=== PATIENT | female | born 1935 | race Caucasian/White ===

== ENCOUNTER 2019-07-03 08:00 | Outpatient (CLI) | payer MEDICARE ==
[2019-07-03 12:05] LABS: BASOPHILS % (AUTO) 0.2 %; EOSINOPHILS # (AUTO) 0.1 10^3/uL (0.0-0.7); EOSINOPHILS % (AUTO) 2.2 %; HGB - HEMOGLOBIN 13.6 g/dL (12.0-16.0); LYMPHOCYTES # (AUTO) 1.7 10^3/uL (1.5-3.5); LYMPHOCYTES % (AUTO) 34.1 %; MEAN CORPUSCULAR HEMOGLOBIN 29.2 pg (27.0-31.0); MEAN CORPUSCULAR HGB CONC 31.6 g/dL (32.0-36.0); MEAN CORPUSCULAR VOLUME 92.3 fL (81.0-99.0); MEAN PLATELET VOLUME 10.8 fL (7.9-10.8); MONOCYTES # (AUTO) 0.4 10^3/uL (0.0-1.0); MONOCYTES % (AUTO) 8.4 %; NEUTROPHILS # (AUTO) 2.7 10^3/uL (1.5-6.6); NEUTROPHILS % (AUTO) 54.9 %; PLT - PLATELET COUNT 140 10^3/uL (130-450); RED BLOOD COUNT 4.66 10^6/uL (4.20-5.40); WHITE BLOOD COUNT 4.9 x10^3/uL (4.8-10.8)
[2019-07-03 12:14] LABS: ALBUMIN 3.8 g/dL (3.2-5.5); ALBUMIN/GLOBULIN RATIO 1.4 (1.0-2.2); ALKALINE PHOSPHATASE 52 IU/L (42-121); ALT ALANINE AMINOTRANSFERASE 11 IU/L (10-60); AST ASPARTATE AMINOTRANSFERASE 19 IU/L (10-42); BILIRUBIN,TOTAL 1.1 mg/dL (0.2-1.0); BUN - BLOOD UREA NITROGEN 26 mg/dL (6-20); CALCIUM 9.3 mg/dL (8.5-10.3); CARBON DIOXIDE - CO2 29 mmol/L (21-32); CHLORIDE 103 mmol/L (101-111); CHOL/HDL RATIO 2.6 (<4.4); CHOLESTEROL 185 mg/dL; GFR - MDRD 53 (>89); GLUCOSE 96 mg/dL (70-100); HDL CHOLESTEROL 70 mg/dL; LDL CHOLESTEROL,CALCULATED 107 mg/dL; LDL/HDL RATIO 1.5 (<4.4); SODIUM 141 mmol/L (135-145); TOTAL PROTEIN 6.5 g/dL (6.7-8.2); VLDL CHOLESTEROL 8 mg/dL
== END 2019-07-03 23:59 | disposition home or self-care (01) ==
LOC: LAB.N 08:00
PROVIDERS: ATTEND Family Medicine
DX: E78.5 Hyperlipidemia, unspecified (principal); I10 Essential (primary) hypertension
CPT/HCPCS: 36415; 80053; 80061; 83721; 84443; 85025

== ENCOUNTER 2019-07-16 15:22 | Outpatient (CLI) | payer MEDICARE ==
--- NOTE | 2019-07-17 08:31 | XRAY Report ---
Reason: FOOT PAIN Procedure Date: 07/16/2019 Accession Number: [id number] / [id number] Procedure: XRN - Foot 3 View LT CPT Code: Final Report FULL RESULT: EXAM: LEFT FOOT RADIOGRAPHY, 3 VIEWS EXAM DATE: 07/16/2019 03:38 PM. CLINICAL HISTORY: 83-year-old female with six-month history of lateral left foot pain. COMPARISON: None. TECHNIQUE: Frontal, lateral and oblique views. FINDINGS: Bones: Mildly to moderately diminished bone density, age-appropriate. No fractures or bone lesions. Joints: Mild narrowing of the tarsometatarsal joints and IP joints, most prominent in the 2nd, 3rd and 4th digits. No subluxations or joint effusion. Soft Tissues: Normal. No soft tissue swelling. IMPRESSION: Moderate diffuse chronic changes, as discussed above, age-related. No fracture, joint effusion, lytic or destructive process. RADIA
== END 2019-07-16 15:23 | disposition home or self-care (01) ==
LOC: DI.N 15:22
PROVIDERS: ATTEND Family Medicine
DX: M19.072 Primary osteoarthritis, left ankle and foot (principal)

== ENCOUNTER 2020-06-07 09:48 | Outpatient (CLI) | payer MEDICARE ==
--- NOTE | 2020-06-08 15:03 | Mammography Report ---
BILATERAL DIGITAL DIAGNOSTIC MAMMOGRAM 3D/2D: 06/07/2020 CLINICAL: Right lumpectomy and radiation therapy 2017. Comparison is made to exams dated: 04/14/2019 mammogram, 04/01/2018 mammogram, and 02/12/2017 mammogr - [facility]. The tissue of both breasts is predominantly fatty. The patient is status post partial mastectomy both breasts. No significant interval change. There ar e stable benign-appearing calcifications in both breasts. No significant masses, calcifications, or other findings are seen in either breast. IMPRESSION: BENIGN There is no mammographic evidence of malignancy. A 1 year screening mammogram is recommended. Findings and recommendations were conveyed to the patient during today's evaluation. This exam was interpreted at Station ID: [id number]. NOTE: For mammograms, a report in lay terms will be sent to the patient. Approximately 15% of breast malignancies will not be visualized mammographically. In the management of a palpable breast mass, a negative mammogram must not discourage biopsy of a clinically suspicious lesion. Electronically Signed By: Duran Kidd M.D. aty/:06/07/2020 11:16:57 ACR BI-RADS Category 2: Benign Finding(s) 3342F PARENCHYMAL PATTERN: (F) - The breast(s) demonstrate(s) diffuse fatty replacement. BI-RADS CATEGORY: (2) - 2 RECOMMENDATION: (ANNUAL) - Recommend routine annual screening mammography. [id number] 1 year screening LATERALITY: (B)
== END 2020-06-07 09:49 | disposition home or self-care (01) ==
LOC: DI 09:48
PROVIDERS: ATTEND Internal Medicine
DX: Z08 Encounter for follow-up examination after completed treatment for malignant neoplasm (principal); Z85.3 Personal history of malignant neoplasm of breast

== ENCOUNTER 2020-07-12 15:06 | Outpatient (CLI) | payer MEDICARE | END 2020-07-12 15:07 | disposition critical access hospital (66) | LOC: EMS 15:06 | PROVIDERS: ATTEND Surgery | DX: S09.90XA Unspecified injury of head, initial encounter (principal); R41.0 Disorientation, unspecified; W18.30XA Fall on same level, unspecified, initial encounter; Y92.199 Unspecified place in other specified residential institution as the place of occurrence of the external cause | CPT/HCPCS: A0425; A0429 ==

== ENCOUNTER 2020-07-12 15:21 | Inpatient (IN) | payer MEDICARE ==
--- NOTE | 2020-07-12 15:32 | ED Physician Documentation ---
PD HPI Fall - Stated complaint Stated Complaint: GLF - History obtained from History obtained from: Patient, EMS - Additional information Additional information: This is a very pleasant 84-year-old woman who presents by ambulance for falls. She has a history of breast cancer and Parkinson's disease per oncology notes with some memory difficulties and frequent falls. She fell yesterday and today. Patient has no complaints but they did note a wound on the back of her head which was from the fall yesterday. Recent start of levofloxacin for reported UTI, I think she is on day 4 or 5. 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 - Present Medications Home Medications: Ambulatory Orders Medication Instructions Recorded Confirmed Anastrozole 1 mg PO DAILY 11/11/19 06/22/20 Aspirin [Adult Aspirin Regimen] 81 mg PO DAILY 11/11/19 06/22/20 Carbidopa/Levodopa 1 tab PO TID 11/11/19 06/22/20 [Carbidopa-Levodopa 25-100 Tab] Cholecalciferol (Vitamin D3) 1 tab PO DAILY 11/11/19 06/22/20 [Vitamin D3] Mirtazapine 0.5 tab PO DAILY PM 11/11/19 06/22/20 Omeprazole 20 mg PO DAILY 11/11/19 06/22/20 Oxybutynin [Ditropan] 5 mg PO DAILY 11/11/19 06/22/20 Simvastatin 10 mg PO DAILY 11/11/19 06/22/20 amLODIPine [Norvasc] 7.5 mg PO DAILY 11/11/19 06/22/20 - Allergies Allergies/Adverse Reactions: Allergies Allergy/AdvReac Type Severity Reaction Status Date / Time No Known Drug Allergies Allergy Verified 07/12/20 15:30 - Social History Smoking Status: Never smoker PD ED PE NORMAL - Vitals Vital signs reviewed: Yes - General General: Other (Slow mumbling speech, she is alert and oriented to person and place but not time or events.) - HEENT HEENT: PERRL, EOMI, Other (There is a scab on the occiput, nontender) - Neck Neck: Supple, no meningeal sign, No bony TTP - Cardiac Cardiac: RRR, No murmur - Respiratory Respiratory: No respiratory distress, Clear bilaterally - Abdomen Abdomen: Soft, Non tender - Back Back: No CVA TTP, No spinal TTP - Derm Derm: Normal color, Warm and dry - Extremities Extremities: No edema, No calf tenderness / cord - Neuro Neuro: personal trainer 2-12 intact, No motor deficit, No sensory deficit Eye Opening: Spontaneous Motor: Obeys Commands Verbal: Confused GCS Score: 14 Results - Vitals Vitals: Vital Signs - 24 hr 07/12/20 07/12/20 07/12/20 15:30 16:53 17:11 Temperature 37.1 C Heart Rate 73 70 72 Respiratory 19 19 18 Rate Blood Pressure 160/72 H 148/99 H 158/73 H O2 Saturation 99 100 93 Oxygen O2 Source Room air - Labs Labs: Laboratory Tests 07/12/20 07/12/20 07/12/20 15:38 15:38 15:38 WBC 7.4 RBC 4.61 Hgb 13.8 Hct 41.2 MCV 89.4 MCH 29.9 MCHC 33.5 RDW 12.8 Plt Count 140 MPV 10.0 Neut # (Auto) 6.1 Lymph # (Auto) 0.8 L [place] # (Auto) 0.4 Eos # (Auto) 0.0 Baso # (Auto) 0.0 Absolute Nucleated RBC 0.00 Nucleated RBC % 0.0 PT 12.2 INR 1.1 Sodium 142 Potassium 3.9 Chloride 105 Carbon Dioxide 26 Anion Gap 11.0 BUN 28 H Creatinine 1.0 Estimated GFR (MDRD) 53 L Glucose 147 H Calcium 9.7 Magnesium 1.9 Total Bilirubin 1.1 H AST 19 ALT 17 Alkaline Phosphatase 97 Total Protein 6.8 Albumin 4.1 Globulin 2.7 Albumin/Globulin Ratio 1.5 - Rads (name of study) CT Head Radiology: EMP read contemporaneously (Acute intracranial hemorrhage with mass- effect, looks like it is within a prior left MCA infarct) CT Cspine Radiology: EMP read contemporaneously (NAD) PD MEDICAL DECISION MAKING - ED course ED course: Spoke with daughter by phone; she did not feel her mental status was too far off normal. She has a cane and "should use a walker, but refuses." CT head as above. Had extensive goals of care discussions with the family and the patient's. Initial plan was to send her to [place] for evaluation. I worked with [facility] and spoke with Dr. Darryl Shaffer, neurosurgeon optimization consultant there who reviewed the images. He felt that given her age and comorbidities there was no interventional approach at that he could offer her. He did not feel like there was any reason for her to come down. This was discussed again with the family and they are in agreement with admission here for expectant management. Departure - Departure Disposition: 66 [facility] DC/Xfer Clinical Impression: Intracranial hemorrhage Condition: Critical
[2020-07-12 15:46] LABS: BASOPHILS % (AUTO) 0.1 %; EOSINOPHILS % (AUTO) 0.1 %; HGB - HEMOGLOBIN 13.8 g/dL (12.0-16.0); LYMPHOCYTES # (AUTO) 0.8 10^3/uL (1.5-3.5); LYMPHOCYTES % (AUTO) 10.2 %; MEAN CORPUSCULAR HEMOGLOBIN 29.9 pg (27.0-31.0); MEAN CORPUSCULAR HGB CONC 33.5 g/dL (32.0-36.0); MEAN CORPUSCULAR VOLUME 89.4 fL (81.0-99.0); MONOCYTES # (AUTO) 0.4 10^3/uL (0.0-1.0); MONOCYTES % (AUTO) 5.7 %; NEUTROPHILS # (AUTO) 6.1 10^3/uL (1.5-6.6); NEUTROPHILS % (AUTO) 83.4 %; PLT - PLATELET COUNT 140 10^3/uL (130-450); RED BLOOD COUNT 4.61 10^6/uL (4.20-5.40); RED CELL DISTRIBUTION WIDTH 12.8 % (12.0-15.0); WHITE BLOOD COUNT 7.4 x10^3/uL (4.8-10.8)
[2020-07-12 15:56] LABS: ALBUMIN 4.1 g/dL (3.2-5.5); ALBUMIN/GLOBULIN RATIO 1.5 (1.0-2.2); BILIRUBIN,TOTAL 1.1 mg/dL (0.2-1.0); CALCIUM 9.7 mg/dL (8.5-10.3); MAGNESIUM 1.9 mg/dL (1.7-2.8); TOTAL PROTEIN 6.8 g/dL (6.7-8.2)
--- NOTE | 2020-07-12 16:33 | CT Report ---
PROCEDURE: HEAD WO INDICATIONS: Head injury TECHNIQUE: Noncontrast 4.5 mm thick angled axial sections acquired from the foramen magnum to the vertex. For r adiation dose reduction, the following was used: automated exposure control, adjustment of mA and/or kV according to patient size. COMPARISON: None. FINDINGS: These images demonstrate what appears to represent left MCA territory cystic encephalomalacia involvi ng the left frontal lobe, left frontal operculum and insular region, and anterior left temporal lobe. There are no craniotomy changes to indicate that the encephalomalacia is secondary to resection. Wit hin the encephalomalacia there is a large, lobular, and partially organized hyperdense extra-axial he matoma measuring approximately 5.8 x 2.4 cm. The hematoma and extra-axial collection combine to produ ce overall moderate mass effect manifest as partial moderate effacement of the left lateral ventricle and partial effacement of the third ventricle. There is left to right midline shift at the level of the foramen of Tran measuring approximately 1 cm and measuring approximately 9 mm at the septum pel lucidum. There is no evidence of ventricular entrapment or acute obstructive hydrocephalus. Temporal horns are symmetric in size. No periventricular edema. The basilar cisterns and fourth ventricle, and aqueduct are all patent. There is global cerebral volume loss with chronic microvascular ischemic ch veronica. No additional intracranial hemorrhage identified. No gross orbital abnormality. Paranasal sinus es and mastoid air cells are clear. IMPRESSION: Acute intracranial hemorrhage which exerts significant overall moderate mass effect on the adjacent b rain parenchyma. Neurosurgical consultation would be recommended. The precise etiology of the hemorrh age is not entirely clear. 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 A n acute on chronic hemorrhage with low attenuation remote blood products could appear similar. Altern atively, combined CSF hygroma and acute subdural hematoma could appear similar as well. Metastasis wi th secondary hemorrhage is considered unlikely but cannot be strictly excluded on the basis of this e xam. An MRI with contrast is recommended to further characterize this abnormality and narrow the diff erential considerations. Findings were discussed with Dr. Bustos at 4:25 PM on 07/12/2020 Reviewed by: Km Kent MD on 07/12/2020 4:32 PM PST Approved by: Km Kent MD on 07/12/2020 4:32 PM [facility] Station ID: [id number]
--- NOTE | 2020-07-12 16:37 | CT Report ---
PROCEDURE: CERVICAL SPINE WO INDICATIONS: Trauma, fall, head injury TECHNIQUE: Noncontrast 3 mm thick sections acquired from the skull base to the T4 level. Sagittal and coronal r eformats were then constructed. For radiation dose reduction, the following was used: automated exp osure control, adjustment of mA and/or kV according to patient size. COMPARISON: None. FINDINGS: Image quality: Excellent. Bones: Upper thoracic cement vertebral body augmentation and posterior fixation changes partially vis ualized. Normal cervical spine alignment and vertebral body height. No evidence of an acute fracture within the field of view. Multilevel multifactorial degenerative changes are present. Soft tissues: Prevertebral soft tissues are normal in thickness. No paravertebral hematomas. No ap ical pneumothoraces. IMPRESSION: No CT evidence of acute or metastatic cervical spine injury. Reviewed by: Km Kent MD on 07/12/2020 4:36 PM PST Approved by: Km Kent MD on 07/12/2020 4:36 PM PST Station ID: [id number]
[2020-07-12 17:07] LABS: INR 1.1 (0.8-1.2); PT - PROTHROMBIN TIME 12.2 secs (9.9-12.6)
[2020-07-12 19:12] LABS: C. PNEUMONIAE- RESP PCR PANEL NOT DETECTED
[2020-07-12] MEDS ORDERED: ONDANSETRON 4 MG/2 ML VIAL IVP PRN (19:55)
[2020-07-12] MEDS ORDERED: MORPHINE 2 MG/ML CARPUJECT IVP PRN (19:55)
[2020-07-12] MEDS ORDERED: oxyCODONE 5 MG TABLET PO PRN (19:55)
[2020-07-12] MEDS ORDERED: DEXTROSE 5%-0.45% NACL 1,000 ML IV SCH (20:00)
--- NOTE | 2020-07-12 20:08 | HISTORY & PHYSICAL EXAMINATION ---
Chief Complaint - Chief Complaint Chief Complaint: Fall History of Present Illness - Admitted From Admitted From:: [facility] - History Obtained From Records Reviewed: Yes History obtained from: Patient, ER Physician, EMR Exam Limitations: Patient has dysarthric speech - History of Present Illness HPI Comment/Other: This is a 84-year-old female with a past medical history significant for hypertension, Parkinson's disease, history of breast cancer who presents today after having a fall at her senior living. She states that she fell yesterday and hit the right side of her head. She fell again today and it was noted that her speech was slurred/dysarthric. The patient denies any headache or change in vision. She denies any focal motor deficits. She reports no chest pain or dyspnea. She states she is not on aspirin or any anticoagulation. She normally ambulates with a cane. She did not have any loss of consciousness. In the emergency department, she was found to be afebrile with a temperature of 37.1 C. Her heart rate was in the 70s. Blood pressure is 160/72. She was not tachypneic and saturating well on room air. She underwent a CT of the head which showed an acute intracranial hemorrhage which exerts significant overall moderate mass-effect. 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 These findings were discussed with neurosurgery at [facility] who felt that transfer was not warranted as there would be no surgical intervention due to her age and comorbidities. Medicine was then consulted for admission. I did discuss goals of care with the patient and she states that she is a DNR. History - Past Medical History Cardiovascular: reports: Hypertension Neuro: reports: Parkinson's FIELD TECH: reports: Breast cancer - Past Surgical History Ortho: reports: Knee replacement, Rotator cuff repair, Spine surgery /FIELD TECH: reports: Other - Family & Social History Family History Comment/Other: She denies any significant family history specifically history of heart disease, stroke, cancer. Living arrangement: care home Social History Notes: She is originally from [facility]. She is a non- smoker. She will have an occasional glass of cognac. Meds/Allgy - Home Medications Home Medications: Ambulatory Orders Medication Instructions Recorded Confirmed Anastrozole 1 mg PO DAILY 11/11/19 06/22/20 Aspirin [Adult Aspirin Regimen] 81 mg PO DAILY 11/11/19 06/22/20 Carbidopa/Levodopa 1 tab PO TID 11/11/19 06/22/20 [Carbidopa-Levodopa 25-100 Tab] Cholecalciferol (Vitamin D3) 1 tab PO DAILY 11/11/19 06/22/20 [Vitamin D3] Mirtazapine 0.5 tab PO DAILY PM 11/11/19 06/22/20 Omeprazole 20 mg PO DAILY 11/11/19 06/22/20 Oxybutynin [Ditropan] 5 mg PO DAILY 11/11/19 06/22/20 Simvastatin 10 mg PO DAILY 11/11/19 06/22/20 amLODIPine [Norvasc] 7.5 mg PO DAILY 11/11/19 06/22/20 - Allergies Allergies/Adverse Reactions: Allergies Allergy/AdvReac Type Severity Reaction Status Date / Time No Known Drug Allergies Allergy Verified 07/12/20 15:30 Review of Systems - Constitutional Constitutional: denies: Fever, Chills - Eyes Eyes: denies: Blurred vision - Cardiovascular Cariovascular: denies: Chest pain, Exertional dyspnea, Decr. exercise tolerance - Respiratory Respiratory: denies: SOB at rest, SOB with exertion - Gastrointestinal Gastrointestinal: denies: Abdominal pain - Neurological Neurological: denies: Focal weakness, Headache - All Other Systems All Other Systems: reports: Other (Review of systems is limited given her dysarthria.) Prior Level of Functionality: She normally ambulates with a cane at baseline. Exam - Vital Signs Reviewed Vital Signs: Yes Vital Signs: Vital Signs x48h Temp Pulse Resp BP Pulse Ox 07/12/20 19:11 69 17 156/64 H 95 07/12/20 17:11 72 18 158/73 H 93 07/12/20 16:53 70 19 148/99 H 100 07/12/20 15:30 37.1 C 73 19 160/72 H 99 - Physical Exam General Appearance: positive: No acute distress, Alert, Mild distress Eyes Bilateral: positive: Normal inspection, PERRL, EOMI, Conjunctivae nml ENT: positive: ENT inspection nml Neck: positive: Nml inspection Respiratory: positive: No respiratory distress. negative: Wheezes, Rales Cardiovascular: positive: Regular rate & rhythm, No murmur. negative: Tachycardia Abdomen: positive: Non-tender, No distention. negative: Tenderness Skin: positive: Warm, Dry Extremities: positive: Full ROM, No pedal edema Neurologic/Psychiatric: positive: Sensation nml, Disoriented to time, Slurred/abnml speech (Her speech is dysarthric.), Other (She has 5 out of 5 motor strength in her upper extremities. Her lower extremities are about 4 out of 5. Dysmetria noted with the LUE. [id number] test intact in the RUE.). negative: Disoriented to person, Disoriented to place, Sensory loss, Facial droop Conclusion/Plan - Problem List (1) Intracranial hemorrhage Conclusion/Plan: This is likely secondary to her fall yesterday. CT confirms an intracranial hemorrhage with mass-effect. Her most prominent symptoms are just dysarthria fortunately. Neurosurgery felt she was not a surgical candidate and so we will admit her here to the intensive care unit. We will start her on a Cardene infusion for goal systolic less than 140 mmHg. Neurochecks every hour. We will repeat a CT head in the morning. Will likely need to discuss with neurology/neurosurgery regarding repeat imaging after tomorrow. She will need PT and OT. N.p.o. until speech evaluation. (2) Hypertension Conclusion/Plan: She is hypertensive with systolic in the 160s. We will place her on a Cardene infusion as mentioned above for goal systolic less than 140. (3) Parkinsons disease Conclusion/Plan: We will resume her home medications when she passes a swallow evaluation. She is n.p.o. for the time being. (4) History of breast cancer Conclusion/Plan: This is an remission per the patient. She is on anastrozole. Continue outpatient follow-up with her oncologist. - Lab Results Lab results reviewed: Yes Abisai Bones: 07/12/20 15:38 07/12/20 15:38 - Diagnostic Imaging Results Diagnostic Imaging Results: positive: Final report reviewed Core Measures - Anticipated LOS I expect patient to be DC'd or transferred within 96 hours.: Yes - Issues Hospital Issues and Management Plan: 84-year-old female presents with fall found to have a hemorrhagic stroke. Per neurosurgery, she is not a surgical candidate and so we will admit her to the ICU. We will start her on Cardene and neurochecks. Repeat CT in the morning. - DVT/VTE - Prophylaxis VTE/DVT Device ordered at admit?: Yes VTE/DVT Prophylaxis med ordered at admit?: No Not Ordered - Medical Reason: Contraindicated
[2020-07-12] MEDS: NICARDIPINE HCL 25 MG in SODIUM CHLORIDE 0.9% 240 ML IV SCH (21:14)
[2020-07-12] MEDS: SODIUM CHLORIDE 0.9% 1,000 ML IV SCH (21:15)
[2020-07-13] MEDS: NICARDIPINE HCL 25 MG in SODIUM CHLORIDE 0.9% 240 ML IV SCH ×6 (01:03→22:05)
[2020-07-13] MEDS: SODIUM CHLORIDE FLUSH 0.9% 10 ML SYRINGE IVP SCH ×3 (01:05→17:07)
[2020-07-13 05:46] LABS: BASOPHILS % (AUTO) 0.2 %; EOSINOPHILS % (AUTO) 0.7 %; LYMPHOCYTES # (AUTO) 1.4 10^3/uL (1.5-3.5); LYMPHOCYTES % (AUTO) 24.8 %; MEAN CORPUSCULAR HEMOGLOBIN 29.4 pg (27.0-31.0); MEAN CORPUSCULAR HGB CONC 32.5 g/dL (32.0-36.0); MEAN CORPUSCULAR VOLUME 90.4 fL (81.0-99.0); MEAN PLATELET VOLUME 10.7 fL (7.9-10.8); MONOCYTES # (AUTO) 0.5 10^3/uL (0.0-1.0); MONOCYTES % (AUTO) 9.3 %; NEUTROPHILS # (AUTO) 3.8 10^3/uL (1.5-6.6); NEUTROPHILS % (AUTO) 64.8 %; PLT - PLATELET COUNT 108 10^3/uL (130-450); RED BLOOD COUNT 4.08 10^6/uL (4.20-5.40); RED CELL DISTRIBUTION WIDTH 12.8 % (12.0-15.0); WHITE BLOOD COUNT 5.8 x10^3/uL (4.8-10.8)
[2020-07-13 05:55] LABS: CALCIUM 8.6 mg/dL (8.5-10.3); CREATININE 0.8 mg/dL (0.4-1.0); PHOSPHORUS 2.8 mg/dL (2.5-4.6)
[2020-07-13] MEDS ORDERED: PANTOPRAZOLE 40 MG VIAL IVP SCH (07:00)
[2020-07-13] MEDS: SODIUM CHLORIDE 0.9% 1,000 ML IV SCH ×3 (07:05→22:22)
[2020-07-13] MEDS ORDERED: FLU VACC QS2020-21(6MOS UP)/PF 60 MCG/0.5 ML SYRINGE IM ONE (09:00)
[2020-07-13] MEDS: SODIUM CHLORIDE FLUSH 0.9% 10 ML SYRINGE IVP PRN (11:20)
[2020-07-13] MEDS: FAMOTIDINE 20 MG/2 ML VIAL IVP SCH ×2 (11:20→21:00)
--- NOTE | 2020-07-13 13:19 | CT Report ---
PROCEDURE: HEAD WO INDICATIONS: worsening confusion TECHNIQUE: Noncontrast 4.5 mm thick angled axial sections acquired from the foramen magnum to the vertex. For r adiation dose reduction, the following was used: automated exposure control, adjustment of mA and/or kV according to patient size. COMPARISON: 07/06. FINDINGS: Image quality: Excellent. CSF spaces: Basal cisterns are patent. No extra-axial fluid collections. Ventricles are normal in size and shape. Brain: Large left frontal-parietal extra-axial cystic lesion with internal acute hemorrhage is not si gnificantly changed compared to 07/12 2020. No new intracranial hemorrhage. The lesion is causing may ed mass effect on adjacent brain parenchyma with approximately 1.1 cm left to right subfalcine hernia tion which is stable compared to 07/12/2020. No obstructive hydrocephalus/ventricular entrapment ident ified in the current study. Amor-white matter interface is normal. Skull and face: Left frontal lindsay hole is stable. The visualized facial bones are intact, without nabil picious lesions. Sinuses: Visualized sinuses and mastoids are clear. IMPRESSION: 1. No significant interval change compared 06/18. 2. Large left frontal-temporal extra-axial cystic lesion with acute internal hemorrhage not significa nt changed compared to 06/18. No new intracranial hemorrhage identified. 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 3. 1.1 cm of stey-cm-owxvn subfalcine herniation stable compared to 07/12/2020. No evidence of ventric ular entrapment. Basilar cisterns remain patent. Reviewed by: Akanksha Pascal MD, PhD on 07/13/2020 12:17 PM [place] Approved by: Akanksha Pascal MD, PhD on 07/13/2020 12:17 PM [place] Station ID: [id number]
--- NOTE | 2020-07-13 13:38 | PROVIDER PROGRESS NOTE ---
Assessment/Plan - Problem List (1) Intracranial hemorrhage Assessment/Plan: The CT head done yesterday in the ER, showed a large area of hemorrhage. The ER doctor reached out to Neurosurgery and she was deemed not to be a candidate for transfer for craniotomy for evacuation of the bleeding because of her underlying dementia and Parkinson's and comorbidities, as per the ER, Dr Stock. Because of her worsening status confusion and language ability and orientation, will obtain a STAT head CT today.>> The head CT showed unchanged findings from yesterday which includes a significant sized hemorrhage and midline shift and some herniation. Avoid anticoagulants and antiplatelet agents. Blood pressure control below 140 systolic is planned. I reached out to the family and spoke to daughter Alisha and discussed the worsened status and that the pt is critical and with brain herniation she may be terminal in the next 24 hours. The family will be allowed to visit, therefore, even during COVID restrictions. (2) Stroke Assessment/Plan: As above. Swallow eval. today>> she cannot swallow and keeping her NPO was advised by Speech Therapist Because of her worsening confusion, will cancel her PT and OT evaluations today, resume them if she has signs of improvement. (3) Aphagia Assessment/Plan: The nurse noted that the patient could not stick out her tongue. Speech therapist saw this patient for swallowing eval and the patient cannot swallow today, starts to speak when she has liquids in her mouth. We will continue to keep her n.p.o. All meds by IV form. She will need PT, OT, and speech therapy rehab at disposition. (4) Brain cyst Assessment/Plan: Repeat head CT done today, makes particular note of presence of cyst in the brain. MRI was recommended on that reading to rule out a possible intracranial tumor as well. If she survives the next 12-24 hours, will order brain MRI. (5) Dementia Assessment/Plan: According to the admitting apprentice, her dementia was mild. Today she is more confused therefore the repeat head CT was done. (6) Parkinsons disease Assessment/Plan: As per Hx. Fortunately, she cannot take her p.o. Parkinson's meds since she cannot swallow safely but does not have an NG tube and or PEG tube for them to be administered that way. (7) Hypertension Assessment/Plan: Blood pressure at presentation was 160. She is on a Cardene drip to keep blood pressure under 140. She is running blood pressures of 118 systolic approximately (8) Thrombocytopenia Assessment/Plan: This is a concerning new finding, for consumption coagulopathy. Follow CBC daily. (9) History of breast cancer Assessment/Plan: She was on home meds, currently on hold. - Current Meds Current Meds: Current Medications Generic Name Dose Route Start Last Admin Trade Name Freq PRN Reason Stop Dose Admin Famotidine 20 mg 07/13/20 10:58 07/13/20 11:20 Famotidine 20 Mg/2 Ml Vial IVP 20 mg BID YOANA Administration Nicardipine HCl 25 mg/ Sodium 250 mls @ 50 mls/hr 07/12/20 20:00 07/13/20 12:49 Chloride IV 5 mg/hr .Q5H YOANA 50 mls/hr Administration Protocol 5 MG/HR Sodium Chloride 1,000 mls @ 100 mls/hr 07/12/20 20:00 07/13/20 12:53 Normal Saline 0.9% IV 100 mls/hr .Q10H YOANA Infusion Sodium Chloride 10 ml 07/13/20 01:00 07/13/20 11:21 Sodium Chloride Flush 0.9% 10 Ml Syringe IVP Not Given 0100,0900,1700 YOANA Sodium Chloride 10 ml 07/12/20 19:55 07/13/20 11:20 Sodium Chloride Flush 0.9% 10 Ml Syringe IVP 10 ml PRN PRN Administration NEEDED PER PROVIDER ORDERS - Lab Result Fish Bone Diagrams: 07/13/20 04:12 07/13/20 04:12 - Additional Planning My Orders: My Active Orders 07/13/20 04:46 Oxygen [Oxygen Therapy] [RC] .PRN 07/13/20 10:58 Famotidine [Pepcid] 20 mg IVP BID Subjective - Subjective Patient Reports: Other (She is just saying gibberish and has right gaze preference. She is unable to follow directions to test strength or [id number] exam.) Nursing Reports: Other (The day nurse notes that she is more confused in the afternoon that she was in the morning) Objective Vital Signs: Vital Signs - 24 hr 07/12/20 07/12/20 07/12/20 15:30 16:53 17:11 Temperature 37.1 C Heart Rate 73 70 72 Heart Rate [ Monitoring electrodes] Respiratory 19 19 18 Rate Blood Pressure 160/72 H 148/99 H 158/73 H Blood Pressure [Right Brachial artery] O2 Saturation 99 100 93 07/12/20 07/12/20 07/12/20 19:11 21:09 21:34 Temperature 37.2 C 37.2 C Heart Rate 69 Heart Rate [ 67 71 Monitoring electrodes] Respiratory 17 14 16 Rate Blood Pressure 156/64 H Blood Pressure 164/69 H 141/63 H [Right Brachial artery] O2 Saturation 95 93 07/12/20 07/12/20 07/13/20 22:00 23:00 00:00 Temperature 36.8 C Heart Rate Heart Rate [ 69 64 63 Monitoring electrodes] Respiratory 16 14 14 Rate Blood Pressure Blood Pressure 133/46 H 120/53 L 126/51 L [Right Brachial artery] O2 Saturation 93 91 L 91 L 07/13/20 07/13/20 07/13/20 01:00 02:00 03:00 Temperature Heart Rate Heart Rate [ 66 62 65 Monitoring electrodes] Respiratory 17 14 16 Rate Blood Pressure Blood Pressure 131/50 H 123/51 L 121/50 L [Right Brachial artery] O2 Saturation 95 95 95 07/13/20 07/13/20 07/13/20 04:00 05:00 06:00 Temperature 36.9 C Heart Rate Heart Rate [ 90 68 66 Monitoring electrodes] Respiratory 13 16 17 Rate Blood Pressure Blood Pressure 118/47 L 129/48 L 122/47 L [Right Brachial artery] O2 Saturation 95 95 92 07/13/20 07/13/20 07/13/20 07:00 08:00 09:00 Temperature 37.2 C Heart Rate Heart Rate [ 69 67 69 Monitoring electrodes] Respiratory 17 17 18 Rate Blood Pressure Blood Pressure 128/51 L 127/48 L 121/50 L [Right Brachial artery] O2 Saturation 94 91 L 96 07/13/20 07/13/20 07/13/20 10:00 11:00 12:00 Temperature Heart Rate Heart Rate [ 72 68 71 Monitoring electrodes] Respiratory 17 20 18 Rate Blood Pressure Blood Pressure 127/48 L 99/60 129/49 L [Right Brachial artery] O2 Saturation 96 97 96 Oxygen O2 Source Nasal cannula I&O (Last 24 Hrs): Intake and Output Totals x24h 07/11/20 07/12/20 07/13/20 23:59 23:59 23:59 Intake Total 2313.333 Output Total 375 633 Balance -375 1680.333 General: Other (Awake, appears fidgity.) HEENT: Mucous membr. moist/pink, Other (R gaze preference) Neuro: Focal Deficits, Other (Gibberish speech this afternoon. Gazing to the right. Not following commands. Moving all extrem spontaneously.) Cardiovascular: Regular rate Respiratory: No respiratory distress Abdomen: Soft Extremities: No edema - Results Results: Laboratory Results WBC 5.8 x10^3/uL (4.8-10.8) 07/13/20 04:12 RBC 4.08 10^6/uL (4.20-5.40) L 07/13/20 04:12 Hgb 12.0 g/dL (12.0-16.0) 07/13/20 04:12 Hct 36.9 % (37.0-47.0) L 07/13/20 04:12 MCV 90.4 fL (81.0-99.0) 07/13/20 04:12 MCH 29.4 pg (27.0-31.0) 07/13/20 04:12 MCHC 32.5 g/dL (32.0-36.0) 07/13/20 04:12 RDW 12.8 % (12.0-15.0) 07/13/20 04:12 Plt Count 108 10^3/uL (130-450) L 07/13/20 04:12 MPV 10.7 fL (7.9-10.8) 07/13/20 04:12 Neut # (Auto) 3.8 10^3/uL (1.5-6.6) 07/13/20 04:12 Lymph # (Auto) 1.4 10^3/uL (1.5-3.5) L 07/13/20 04:12 Haakon # (Auto) 0.5 10^3/uL (0.0-1.0) 07/13/20 04:12 Eos # (Auto) 0.0 10^3/uL (0.0-0.7) 07/13/20 04:12 Baso # (Auto) 0.0 10^3/uL (0.0-0.1) 07/13/20 04:12 Absolute Nucleated RBC 0.00 x10^3/uL 07/13/20 04:12 Nucleated RBC % 0.0 /100WBC 07/13/20 04:12 PT 12.2 secs (9.9-12.6) 07/12/20 15:38 INR 1.1 (0.8-1.2) 07/12/20 15:38 Sodium 140 mmol/L (135-145) 07/13/20 04:12 Potassium 3.6 mmol/L (3.5-5.0) 07/13/20 04:12 Chloride 106 mmol/L (101-111) 07/13/20 04:12 Carbon Dioxide 26 mmol/L (21-32) 07/13/20 04:12 Anion Gap 8.0 (6-13) 07/13/20 04:12 BUN 21 mg/dL (6-20) H 07/13/20 04:12 Creatinine 0.8 mg/dL (0.4-1.0) 07/13/20 04:12 Estimated GFR (MDRD) 69 (>89) L 07/13/20 04:12 Glucose 101 mg/dL (70-100) H 07/13/20 04:12 Calcium 8.6 mg/dL (8.5-10.3) 07/13/20 04:12 Phosphorus 2.8 mg/dL (2.5-4.6) 07/13/20 04:12 Magnesium 2.0 mg/dL (1.7-2.8) 07/13/20 04:12 Total Bilirubin 1.1 mg/dL (0.2-1.0) H 07/12/20 15:38 AST 19 IU/L (10-42) 07/12/20 15:38 ALT 17 IU/L (10-60) 07/12/20 15:38 Alkaline Phosphatase 97 IU/L (42-121) 07/12/20 15:38 Total Protein 6.8 g/dL (6.7-8.2) 07/12/20 15:38 Albumin 4.1 g/dL (3.2-5.5) 07/12/20 15:38 Globulin 2.7 g/dL (2.1-4.2) 07/12/20 15:38 Albumin/Globulin Ratio 1.5 (1.0-2.2) 07/12/20 15:38 Nasal Adenovirus (PCR) NOT DETECTED 07/12/20 18:12 Nasal B. parapertussis DNA (PCR) NOT DETECTED 07/12/20 18:12 Nasal Coronavir 229E PCR NOT DETECTED 07/12/20 18:12 Nasal Coronavir HKU1 PCR NOT DETECTED 07/12/20 18:12 Nasal Coronavir NL63 PCR NOT DETECTED 07/12/20 18:12 Nasal Coronavir OC43 PCR NOT DETECTED 07/12/20 18:12 Nasal Enterovir/Rhinovir PCR NOT DETECTED 07/12/20 18:12 Nasal Influenza B PCR NOT DETECTED 07/12/20 18:12 Nasal Influenza A PCR NOT DETECTED 07/12/20 18:12 Nasal Parainfluen 1 PCR NOT DETECTED 07/12/20 18:12 Nasal Parainfluen 2 PCR NOT DETECTED 07/12/20 18:12 Nasal Parainfluen 3 PCR NOT DETECTED 07/12/20 18:12 Nasal Parainfluen 4 PCR NOT DETECTED 07/12/20 18:12 Nasal RSV (PCR) NOT DETECTED 07/12/20 18:12 Nasal Screen MRSA (PCR) NEGATIVE (NEGATIVE) 07/12/20 21:10 Nasal B.pertussis DNA PCR NOT DETECTED 07/12/20 18:12 Nasal C.pneumoniae (PCR) NOT DETECTED 07/12/20 18:12 Heath Human Metapneumo PCR NOT DETECTED 07/12/20 18:12 Nasal M.pneumoniae (PCR) NOT DETECTED 07/12/20 18:12 Nasal SARS-CoV-2 (PCR) NOT DETECTED 07/12/20 18:12
--- NOTE | 2020-07-13 14:31 | PHARMACY PROGRESS NOTE ---
- Best Possible Medication History Admit Date and Time: 07/12/20 1838 Processed by: Pharmacy Medication History completed: Yes Patient Interview: Pt unable to participate Secondary Source(s): Written medication list (Med rec completed 07/13 by Ra), Pharmacy records, Insurance records Med rec completed by review of facility list and insurance records. As the person ultimately responsible for medication therapy, providers are able to order a medication from an existing home medication list in [facility] via the "Reconcile Routine" prior to Confirmation of that medication by office support clerk. Such practice is discouraged except when the physician, in their clinical judgment, deems that a medical need exists for a medication without regard to previous use.
[2020-07-14] MEDS: SODIUM CHLORIDE FLUSH 0.9% 10 ML SYRINGE IVP SCH ×4 (01:05→20:48)
[2020-07-14] MEDS: NICARDIPINE HCL 25 MG in SODIUM CHLORIDE 0.9% 240 ML IV SCH ×5 (03:13→23:40)
[2020-07-14] MEDS: SODIUM CHLORIDE 0.9% 1,000 ML IV SCH ×2 (04:46→17:45)
[2020-07-14 05:03] LABS: BASOPHILS % (AUTO) 0.1 %; EOSINOPHILS % (AUTO) 0.1 %; HGB - HEMOGLOBIN 12.8 g/dL (12.0-16.0); LYMPHOCYTES % (AUTO) 11.3 %; MEAN CORPUSCULAR HEMOGLOBIN 29.5 pg (27.0-31.0); MEAN CORPUSCULAR HGB CONC 32.9 g/dL (32.0-36.0); MEAN CORPUSCULAR VOLUME 89.6 fL (81.0-99.0); MEAN PLATELET VOLUME 10.4 fL (7.9-10.8); MONOCYTES # (AUTO) 0.6 10^3/uL (0.0-1.0); MONOCYTES % (AUTO) 7.3 %; NEUTROPHILS # (AUTO) 7.1 10^3/uL (1.5-6.6); PLT - PLATELET COUNT 133 10^3/uL (130-450); RED BLOOD COUNT 4.34 10^6/uL (4.20-5.40); RED CELL DISTRIBUTION WIDTH 12.5 % (12.0-15.0); WHITE BLOOD COUNT 8.8 x10^3/uL (4.8-10.8)
[2020-07-14 05:10] LABS: CALCIUM 8.6 mg/dL (8.5-10.3); CREATININE 0.8 mg/dL (0.4-1.0); MAGNESIUM 1.7 mg/dL (1.7-2.8); PHOSPHORUS 3.1 mg/dL (2.5-4.6)
[2020-07-14] MEDS: FAMOTIDINE 20 MG/2 ML VIAL IVP SCH ×2 (08:10→20:48)
--- NOTE | 2020-07-14 18:27 | PROVIDER PROGRESS NOTE ---
Assessment/Plan - Problem List (1) Intracranial hemorrhage Assessment/Plan: Continue in the ICU today. Continue management as per stroke protocol and needs swallowing eval in order to resume oral meds and management. The family was allowed to visit because she was felt to be worsening yesterday and imaging showed herniation of the brain. Plan will be for repeat imaging at 72 hours which is tomorrow (2) Stroke Assessment/Plan: As in #1. Echo will be ordered for completeness. We will not order carotid Dopplers as she is not a candidate for revascularization. PT and OT have been ordered since there has been some improvement in alertness and movement and speech. Swallowing evaluation shows she can have spoonfuls of pured food with nectar thick liquids. (3) Brain cyst Assessment/Plan: As per imaging done at admission. A better delineation will be obtained by brain MRI which is planned for tomorrow (4) Dementia Assessment/Plan: As per Hx (5) Parkinsons disease Assessment/Plan: As per Hx. Parkinson's meds have not been resumed yet since swallowing is not yet deemed to be safe (6) Hypertension Assessment/Plan: Cardene will be weaned down, hopefully her oral pills can be started tomorrow fo r keeping blood pressure between 110 and 140 optimally. (7) Thrombocytopenia Assessment/Plan: Abnormal but stable (8) History of breast cancer Assessment/Plan: As per Hx (9) Aphagia Assessment/Plan: Improved, she can handle secretions and was able to swallow from a spoon. - Current Meds Current Meds: Current Medications Generic Name Dose Route Start Last Admin Trade Name Freq PRN Reason Stop Dose Admin Famotidine 20 mg 07/13/20 10:58 07/14/20 08:10 Famotidine 20 Mg/2 Ml Vial IVP 20 mg BID YOANA Administration Nicardipine HCl 25 mg/ Sodium 250 mls @ 50 mls/hr 07/13/20 18:00 07/14/20 17:46 Chloride IV 5 mg/hr .Q5H YOANA 50 mls/hr Administration Protocol 5 MG/HR Sodium Chloride 1,000 mls @ 75 mls/hr 07/13/20 22:18 07/14/20 17:45 Normal Saline 0.9% IV 75 mls/hr .[id number] YOANA Administration Sodium Chloride 10 ml 07/13/20 01:00 07/14/20 16:58 Sodium Chloride Flush 0.9% 10 Ml Syringe IVP 10 ml 0100,0900,1700 YOANA Administration Sodium Chloride 10 ml 07/12/20 19:55 07/13/20 11:20 Sodium Chloride Flush 0.9% 10 Ml Syringe IVP 10 ml PRN PRN Administration NEEDED PER PROVIDER ORDERS - Lab Result Fish Bone Diagrams: 07/15/20 04:08 07/15/20 04:08 - Additional Planning My Orders: My Active Orders 07/14/20 Evaluate and Treat OT [OT] Routine Evaluate and Treat PT [PT] Routine Subjective - Subjective Patient Reports: Other (She is able to answer questions with 3-4 word sentences, has very garbled speech. She follows directions. She was purposely trying to change the channel on her TV controller, at 5pm.) Nursing Reports: Other Objective Vital Signs: Vital Signs - 24 hr 07/13/20 07/13/20 07/13/20 19:00 20:00 21:00 Temperature Heart Rate [ Activity] Heart Rate [ 77 76 74 Monitoring electrodes] Heart Rate [ Supine] Respiratory 13 20 17 Rate Blood Pressure [Activity] Blood Pressure 134/48 H 124/54 L 126/76 [Right Brachial artery] Blood Pressure [Supine] O2 Saturation 92 90 L 93 07/13/20 07/13/20 07/14/20 22:00 23:00 00:00 Temperature 37.3 C Heart Rate [ Activity] Heart Rate [ 73 72 73 Monitoring electrodes] Heart Rate [ Supine] Respiratory 19 15 19 Rate Blood Pressure [Activity] Blood Pressure 130/51 L 125/52 L 126/55 L [Right Brachial artery] Blood Pressure [Supine] O2 Saturation 94 94 94 07/14/20 07/14/20 07/14/20 01:00 02:00 03:00 Temperature Heart Rate [ Activity] Heart Rate [ 71 75 71 Monitoring electrodes] Heart Rate [ Supine] Respiratory 17 17 16 Rate Blood Pressure [Activity] Blood Pressure 128/53 L 139/49 H 125/55 L [Right Brachial artery] Blood Pressure [Supine] O2 Saturation 92 93 95 07/14/20 07/14/20 07/14/20 04:00 05:00 06:00 Temperature 37.6 C Heart Rate [ Activity] Heart Rate [ 70 68 67 Monitoring electrodes] Heart Rate [ Supine] Respiratory 14 15 14 Rate Blood Pressure [Activity] Blood Pressure 134/50 H 124/47 L 123/51 L [Right Brachial artery] Blood Pressure [Supine] O2 Saturation 97 96 95 07/14/20 07/14/20 07/14/20 07:00 08:00 09:00 Temperature 37.4 C 37.4 C Heart Rate [ Activity] Heart Rate [ 66 68 73 Monitoring electrodes] Heart Rate [ Supine] Respiratory 16 16 15 Rate Blood Pressure [Activity] Blood Pressure 124/46 L 121/48 L 119/51 L [Right Brachial artery] Blood Pressure [Supine] O2 Saturation 95 95 96 07/14/20 07/14/20 07/14/20 10:11 11:37 12:00 Temperature 37.1 C 37.1 C Heart Rate [ Activity] Heart Rate [ 70 72 66 Monitoring electrodes] Heart Rate [ Supine] Respiratory 16 16 16 Rate Blood Pressure [Activity] Blood Pressure 110/49 L 110/60 118/48 L [Right Brachial artery] Blood Pressure [Supine] O2 Saturation 95 95 96 07/14/20 07/14/20 07/14/20 13:03 14:01 14:21 Temperature 37.6 C Heart Rate [ Activity] Heart Rate [ 72 66 Monitoring electrodes] Heart Rate [ Supine] Respiratory 15 16 Rate Blood Pressure [Activity] Blood Pressure 115/51 L 113/45 L [Right Brachial artery] Blood Pressure [Supine] O2 Saturation 97 93 95 07/14/20 07/14/20 07/14/20 15:10 15:39 16:00 Temperature 37.1 C Heart Rate [ 73 Activity] Heart Rate [ 66 64 Monitoring electrodes] Heart Rate [ 65 Supine] Respiratory 15 16 Rate Blood Pressure 128/52 L [Activity] Blood Pressure 128/52 L 112/47 L [Right Brachial artery] Blood Pressure 114/45 L [Supine] O2 Saturation 96 96 07/14/20 07/14/20 18:00 18:25 Temperature 36.7 C Heart Rate [ Activity] Heart Rate [ 71 65 Monitoring electrodes] Heart Rate [ Supine] Respiratory 16 15 Rate Blood Pressure [Activity] Blood Pressure 124/51 L 123/44 L [Right Brachial artery] Blood Pressure [Supine] O2 Saturation 95 96 Oxygen O2 Source Nasal cannula I&O (Last 24 Hrs): Intake and Output Totals x24h 07/12/20 07/13/20 07/14/20 23:59 23:59 23:59 Intake Total 3715.833 2428.750 Output Total 355 2001 865 Balance -375 2147.833 1563.750 General: Alert HEENT: Mucous membr. moist/pink, Other (Facial droop of the right) Neck: Supple, No JVD Neuro: Alert, Other (Facial droop of the right, the right arm has some spont aneous movement but is weak, the left is stronger, her speech is garbled, she does follow directions, follows voice commands and is able to answer in short sentences this evening.) Cardiovascular: Regular rate, No murmurs Respiratory: No respiratory distress Abdomen: Soft Extremities: No edema - Results Results: Laboratory Results WBC 8.8 x10^3/uL (4.8-10.8) 07/14/20 04:20 RBC 4.34 10^6/uL (4.20-5.40) 07/14/20 04:20 Hgb 12.8 g/dL (12.0-16.0) 07/14/20 04:20 Hct 38.9 % (37.0-47.0) 07/14/20 04:20 MCV 89.6 fL (81.0-99.0) 07/14/20 04:20 MCH 29.5 pg (27.0-31.0) 07/14/20 04:20 MCHC 32.9 g/dL (32.0-36.0) 07/14/20 04:20 RDW 12.5 % (12.0-15.0) 07/14/20 04:20 Plt Count 133 10^3/uL (130-450) 07/14/20 04:20 MPV 10.4 fL (7.9-10.8) 07/14/20 04:20 Neut # (Auto) 7.1 10^3/uL (1.5-6.6) H 07/14/20 04:20 Lymph # (Auto) 1.0 10^3/uL (1.5-3.5) L 07/14/20 04:20 Hughes # (Auto) 0.6 10^3/uL (0.0-1.0) 07/14/20 04:20 Eos # (Auto) 0.0 10^3/uL (0.0-0.7) 07/14/20 04:20 Baso # (Auto) 0.0 10^3/uL (0.0-0.1) 07/14/20 04:20 Absolute Nucleated RBC 0.00 x10^3/uL 07/14/20 04:20 Nucleated RBC % 0.0 /100WBC 07/14/20 04:20 PT 12.2 secs (9.9-12.6) 07/12/20 15:38 INR 1.1 (0.8-1.2) 07/12/20 15:38 Sodium 140 mmol/L (135-145) 07/14/20 04:20 Potassium 3.7 mmol/L (3.5-5.0) 07/14/20 04:20 Chloride 110 mmol/L (101-111) 07/14/20 04:20 Carbon Dioxide 21 mmol/L (21-32) 07/14/20 04:20 Anion Gap 9.0 (6-13) 07/14/20 04:20 BUN 18 mg/dL (6-20) 07/14/20 04:20 Creatinine 0.8 mg/dL (0.4-1.0) 07/14/20 04:20 Estimated GFR (MDRD) 69 (>89) L 07/14/20 04:20 Glucose 113 mg/dL (70-100) H 07/14/20 04:20 Calcium 8.6 mg/dL (8.5-10.3) 07/14/20 04:20 Phosphorus 3.1 mg/dL (2.5-4.6) 07/14/20 04:20 Magnesium 1.7 mg/dL (1.7-2.8) 07/14/20 04:20 Total Bilirubin 1.1 mg/dL (0.2-1.0) H 07/12/20 15:38 AST 19 IU/L (10-42) 07/12/20 15:38 ALT 17 IU/L (10-60) 07/12/20 15:38 Alkaline Phosphatase 97 IU/L (42-121) 07/12/20 15:38 Total Protein 6.8 g/dL (6.7-8.2) 07/12/20 15:38 Albumin 4.1 g/dL (3.2-5.5) 07/12/20 15:38 Globulin 2.7 g/dL (2.1-4.2) 07/12/20 15:38 Albumin/Globulin Ratio 1.5 (1.0-2.2) 07/12/20 15:38 Nasal Adenovirus (PCR) NOT DETECTED 07/12/20 18:12 Nasal B. parapertussis DNA (PCR) NOT DETECTED 07/12/20 18:12 Nasal Coronavir 229E PCR NOT DETECTED 07/12/20 18:12 Nasal Coronavir HKU1 PCR NOT DETECTED 07/12/20 18:12 Nasal Coronavir NL63 PCR NOT DETECTED 07/12/20 18:12 Nasal Coronavir OC43 PCR NOT DETECTED 07/12/20 18:12 Nasal Enterovir/Rhinovir PCR NOT DETECTED 07/12/20 18:12 Nasal Influenza B PCR NOT DETECTED 07/12/20 18:12 Nasal Influenza A PCR NOT DETECTED 07/12/20 18:12 Nasal Parainfluen 1 PCR NOT DETECTED 07/12/20 18:12 Nasal Parainfluen 2 PCR NOT DETECTED 07/12/20 18:12 Nasal Parainfluen 3 PCR NOT DETECTED 07/12/20 18:12 Nasal Parainfluen 4 PCR NOT DETECTED 07/12/20 18:12 Nasal RSV (PCR) NOT DETECTED 07/12/20 18:12 Nasal Screen MRSA (PCR) NEGATIVE (NEGATIVE) 07/12/20 21:10 Nasal B.pertussis DNA PCR NOT DETECTED 07/12/20 18:12 Nasal C.pneumoniae (PCR) NOT DETECTED 07/12/20 18:12 Heath Human Metapneumo PCR NOT DETECTED 07/12/20 18:12 Nasal M.pneumoniae (PCR) NOT DETECTED 07/12/20 18:12 Nasal SARS-CoV-2 (PCR) NOT DETECTED 07/12/20 18:12
[2020-07-15 04:40] LABS: BASOPHILS % (AUTO) 0.3 %; EOSINOPHILS # (AUTO) 0.1 10^3/uL (0.0-0.7); EOSINOPHILS % (AUTO) 1.4 %; HGB - HEMOGLOBIN 12.4 g/dL (12.0-16.0); LYMPHOCYTES # (AUTO) 1.3 10^3/uL (1.5-3.5); LYMPHOCYTES % (AUTO) 18.1 %; MEAN CORPUSCULAR HEMOGLOBIN 29.1 pg (27.0-31.0); MEAN CORPUSCULAR HGB CONC 32.5 g/dL (32.0-36.0); MEAN CORPUSCULAR VOLUME 89.4 fL (81.0-99.0); MEAN PLATELET VOLUME 10.2 fL (7.9-10.8); MONOCYTES # (AUTO) 0.6 10^3/uL (0.0-1.0); NEUTROPHILS % (AUTO) 71.9 %; PLT - PLATELET COUNT 131 10^3/uL (130-450); RED BLOOD COUNT 4.26 10^6/uL (4.20-5.40); RED CELL DISTRIBUTION WIDTH 12.5 % (12.0-15.0)
[2020-07-15 04:41] LABS: VBG PH 7.391 (7.31-7.41)
[2020-07-15 04:53] LABS: CALCIUM 8.5 mg/dL (8.5-10.3); CREATININE 0.8 mg/dL (0.4-1.0); MAGNESIUM 1.8 mg/dL (1.7-2.8); PHOSPHORUS 2.7 mg/dL (2.5-4.6)
[2020-07-15] MEDS: NICARDIPINE HCL 25 MG in SODIUM CHLORIDE 0.9% 240 ML IV SCH (05:55)
[2020-07-15] MEDS: SODIUM CHLORIDE 0.9% 1,000 ML IV SCH ×3 (06:55→21:45)
[2020-07-15] MEDS: FAMOTIDINE 20 MG/2 ML VIAL IVP SCH ×2 (09:20→20:15)
[2020-07-15] MEDS: OXYBUTYNIN 5MG TABLET PO SCH ×2 (09:25→20:15)
[2020-07-15] MEDS ORDERED: POTASSIUM CHLORIDE 20 MEQ TABLET PO ONE (09:30)
[2020-07-15] MEDS ORDERED: POTASSIUM CHLORIDE 20 MEQ/15 ML UDC PO ONE (09:30)
[2020-07-15] MEDS: SODIUM CHLORIDE FLUSH 0.9% 10 ML SYRINGE IVP PRN (09:37)
[2020-07-15] MEDS: SODIUM CHLORIDE FLUSH 0.9% 10 ML SYRINGE IVP SCH ×3 (09:39→20:18)
[2020-07-15] MEDS: ACETAMINOPHEN 325 MG TABLET PO PRN (10:06)
[2020-07-15] MEDS: amLODIPine 5 MG TABLET PO SCH (14:22)
[2020-07-15] MEDS: CARBIDOPA/LEVODOPA 25 MG/100 MG TABLET PO SCH ×2 (14:22→21:31)
--- NOTE | 2020-07-15 15:32 | PROVIDER PROGRESS NOTE ---
Assessment/Plan - Problem List (1) Intracranial hemorrhage Assessment/Plan: Plan is for the brain MRI to be done today (72 hours after presentation). Continue to hold anticoagulants and antiplatelet agents. Management as for stroke (2) Stroke Assessment/Plan: She has had noticeable improvement over the last 36 hours. She can be moved out of the ICU to a telemetry med/surge bed today. Murdock to be removed. Eval by the speech therapist shows that she can be on a pured diet still with nectar thick liquids and she needs to be prompted into chin down, swallow now. PT and OT to begin today. I spoke to the daughter, who was at bedside, and described the plan for PT, OT and Speech rehab at SNF post stroke. After that, I told her, her new baseline may still have some neuro deficits and she may not be able to go back to assisted living. (3) Brain cyst Assessment/Plan: As per imaging done admission. This will be reimaged today by MRI (4) Dementia Assessment/Plan: As per Hx (5) Parkinsons disease Assessment/Plan: Will restart the home Parkinson's meds since her swallowing has slightly improved overall. (6) Hypertension Assessment/Plan: Will restart her Norvasc, at a lower dose, in order to wean IV Cardene to off. Resume other home blood pressure meds as necessary to treat hypertension (7) Thrombocytopenia Assessment/Plan: Monitor labs (8) History of breast cancer Assessment/Plan: as per Hx (9) Aphagia Assessment/Plan: Improved - Current Meds Current Meds: Current Medications Generic Name Dose Route Start Last Admin Trade Name Jacquelyn PRN Reason Stop Dose Admin Acetaminophen 650 mg 07/12/20 19:55 07/15/20 10:06 Acetaminophen 325 Mg Tablet PO 650 mg Q4HR PRN Administration Pain 1 to 4 Amlodipine Besylate 2.5 mg 07/15/20 12:00 07/15/20 14:22 Amlodipine 5 Mg Tablet PO 2.5 mg DAILY YOANA Administration Carbidopa/Levodopa 1 tab 07/15/20 14:00 07/15/20 14:22 Carbidopa/Levodopa 25 Mg/100 Mg Tablet PO 1 tab TID YOANA Administration Famotidine 20 mg 07/13/20 10:58 07/15/20 09:20 Famotidine 20 Mg/2 Ml Vial IVP 20 mg BID YOANA Administration Sodium Chloride 1,000 mls @ 75 mls/hr 07/13/20 22:18 07/15/20 15:08 Normal Saline 0.9% IV 75 mls/hr .[id number] YOANA Infusion Oxybutynin Chloride 5 mg 07/15/20 09:00 07/15/20 09:25 Oxybutynin 5mg Tablet PO 5 mg BID YOANA Administration Sodium Chloride 10 ml 07/13/20 01:00 07/15/20 09:39 Sodium Chloride Flush 0.9% 10 Ml Syringe IVP Not Given 0100,0900,1700 YOANA Sodium Chloride 10 ml 07/12/20 19:55 07/15/20 09:37 Sodium Chloride Flush 0.9% 10 Ml Syringe IVP 10 ml PRN PRN Administration NEEDED PER PROVIDER ORDERS - Lab Result Fish Bone Diagrams: 07/15/20 04:08 07/15/20 04:08 - Additional Planning My Orders: My Active Orders 07/15/20 Breakfast DIET [Full Liquid Diet] [DIET] 07/15/20 07:59 Miscellaenous Nursing Order [RC] ONCE 07/15/20 08:00 Miscellaenous Nursing Order [RC] QSHIFT 07/15/20 09:00 Oxybutynin [Ditropan] 5 mg PO BID 07/15/20 10:56 Echo Complete w/Bubble Study [ECHO] Routine 07/15/20 12:00 amLODIPine [Norvasc] 2.5 mg PO DAILY 07/15/20 13:07 Head [BRAIN WO] [MRI] Routine 07/15/20 14:00 Carbidopa/Levodopa 25/100 [Sinemet 25 mg/100 mg] 1 tab PO TID 07/15/20 21:00 Atorvastatin [Lipitor] 5 mg PO QPM 07/16/20 05:00 CALCIUM, IONIZED ([facility]) [BG] DAILYLAB 07/17/20 05:00 CALCIUM, IONIZED ([facility]) [BG] DAILYLAB Subjective - Subjective Patient Reports: Resting Comfortably Nursing Reports: Other (The day her speech is garbled but she can answer in longer sentences and is even "telling jokes" to [employer]PERATOR) Objective Vital Signs: Vital Signs - 24 hr 07/14/20 07/14/20 07/14/20 15:39 16:00 18:00 Temperature 37.1 C 36.7 C Heart Rate [ Activity] Heart Rate [ 66 64 71 Monitoring electrodes] Heart Rate [ Supine] Respiratory 15 16 16 Rate Blood Pressure [Activity] Blood Pressure 128/52 L 112/47 L 124/51 L [Right Brachial artery] Blood Pressure [Supine] O2 Saturation 96 96 95 07/14/20 07/14/20 07/14/20 18:25 19:00 19:41 Temperature 36.9 C Heart Rate [ Activity] Heart Rate [ 65 69 69 Monitoring electrodes] Heart Rate [ Supine] Respiratory 15 17 17 Rate Blood Pressure [Activity] Blood Pressure 123/44 L 116/47 L 116/47 L [Right Brachial artery] Blood Pressure [Supine] O2 Saturation 96 95 95 07/14/20 07/14/20 07/14/20 20:00 21:00 22:00 Temperature Heart Rate [ Activity] Heart Rate [ 66 68 64 Monitoring electrodes] Heart Rate [ Supine] Respiratory 14 22 16 Rate Blood Pressure [Activity] Blood Pressure 120/45 L 114/43 L 118/73 [Right Brachial artery] Blood Pressure [Supine] O2 Saturation 94 95 93 07/14/20 07/14/20 07/14/20 22:08 22:15 22:20 Temperature Heart Rate [ Activity] Heart Rate [ 64 67 69 Monitoring electrodes] Heart Rate [ Supine] Respiratory Rate Blood Pressure [Activity] Blood Pressure 119/46 L 110/49 L 124/44 L [Right Brachial artery] Blood Pressure [Supine] O2 Saturation 07/14/20 07/14/20 07/14/20 22:25 22:30 22:45 Temperature Heart Rate [ Activity] Heart Rate [ 68 67 64 Monitoring electrodes] Heart Rate [ Supine] Respiratory Rate Blood Pressure [Activity] Blood Pressure 127/49 L 123/48 L 119/49 L [Right Brachial artery] Blood Pressure [Supine] O2 Saturation 07/14/20 07/14/20 07/15/20 23:00 23:51 00:00 Temperature 37.4 C 37.4 C Heart Rate [ Activity] Heart Rate [ 65 68 65 Monitoring electrodes] Heart Rate [ Supine] Respiratory 16 16 15 Rate Blood Pressure [Activity] Blood Pressure 126/53 L 128/50 L [Right Brachial artery] Blood Pressure [Supine] O2 Saturation 93 95 94 07/15/20 07/15/20 07/15/20 01:00 02:00 03:00 Temperature Heart Rate [ Activity] Heart Rate [ 70 62 65 Monitoring electrodes] Heart Rate [ Supine] Respiratory 16 17 16 Rate Blood Pressure [Activity] Blood Pressure 129/51 L 125/49 L 127/49 L [Right Brachial artery] Blood Pressure [Supine] O2 Saturation 94 93 92 07/15/20 07/15/20 07/15/20 04:00 05:00 06:00 Temperature 37.1 C Heart Rate [ Activity] Heart Rate [ 71 71 67 Monitoring electrodes] Heart Rate [ Supine] Respiratory 16 17 14 Rate Blood Pressure [Activity] Blood Pressure 129/52 L 134/51 H 134/46 H [Right Brachial artery] Blood Pressure [Supine] O2 Saturation 94 94 94 07/15/20 07/15/20 07/15/20 07:00 08:00 09:00 Temperature 37.2 C Heart Rate [ Activity] Heart Rate [ 70 72 77 Monitoring electrodes] Heart Rate [ Supine] Respiratory 17 17 19 Rate Blood Pressure [Activity] Blood Pressure 129/49 L 137/56 H 125/48 L [Right Brachial artery] Blood Pressure [Supine] O2 Saturation 94 92 97 07/15/20 07/15/20 07/15/20 10:00 11:00 12:00 Temperature 36.8 C Heart Rate [ Activity] Heart Rate [ 72 70 71 Monitoring electrodes] Heart Rate [ Supine] Respiratory 19 19 18 Rate Blood Pressure [Activity] Blood Pressure 133/51 H 126/52 L 138/56 H [Right Brachial artery] Blood Pressure [Supine] O2 Saturation 94 95 94 07/15/20 07/15/20 07/15/20 12:20 13:00 14:00 Temperature Heart Rate [ 73 Activity] Heart Rate [ 67 72 Monitoring electrodes] Heart Rate [ 65 Supine] Respiratory 18 18 Rate Blood Pressure 128/52 L [Activity] Blood Pressure 138/56 H 149/74 H [Right Brachial artery] Blood Pressure 114/45 L [Supine] O2 Saturation 95 07/15/20 15:00 Temperature Heart Rate [ Activity] Heart Rate [ 75 Monitoring electrodes] Heart Rate [ Supine] Respiratory 22 Rate Blood Pressure [Activity] Blood Pressure 126/56 L [Right Brachial artery] Blood Pressure [Supine] O2 Saturation Oxygen O2 Source Room air I&O (Last 24 Hrs): Intake and Output Totals x24h 07/13/20 07/14/20 07/15/20 23:59 23:59 23:59 Intake Total 3715.833 3072.500 1687.500 Output Total 1568 1080 1075 Balance 2147.833 1992.500 612.500 General: Alert, Other (Possibly oriented x2 (self and location)) HEENT: Mucous membr. moist/pink, Other (Facial droop) Neuro: Alert, Other (Right arm is weaker than left, speech is still garbled but more comprehensible) Cardiovascular: Regular rate Respiratory: No respiratory distress Abdomen: Soft Extremities: No edema - Results Results: Laboratory Results WBC 7.0 x10^3/uL (4.8-10.8) 07/15/20 04:08 RBC 4.26 10^6/uL (4.20-5.40) 07/15/20 04:08 Hgb 12.4 g/dL (12.0-16.0) 07/15/20 04:08 Hct 38.1 % (37.0-47.0) 07/15/20 04:08 MCV 89.4 fL (81.0-99.0) 07/15/20 04:08 MCH 29.1 pg (27.0-31.0) 07/15/20 04:08 MCHC 32.5 g/dL (32.0-36.0) 07/15/20 04:08 RDW 12.5 % (12.0-15.0) 07/15/20 04:08 Plt Count 131 10^3/uL (130-450) 07/15/20 04:08 MPV 10.2 fL (7.9-10.8) 07/15/20 04:08 Neut # (Auto) 5.0 10^3/uL (1.5-6.6) 07/15/20 04:08 Lymph # (Auto) 1.3 10^3/uL (1.5-3.5) L 07/15/20 04:08 Mobile # (Auto) 0.6 10^3/uL (0.0-1.0) 07/15/20 04:08 Eos # (Auto) 0.1 10^3/uL (0.0-0.7) 07/15/20 04:08 Baso # (Auto) 0.0 10^3/uL (0.0-0.1) 07/15/20 04:08 Absolute Nucleated RBC 0.00 x10^3/uL 07/15/20 04:08 Nucleated RBC % 0.0 /100WBC 07/15/20 04:08 PT 12.2 secs (9.9-12.6) 07/12/20 15:38 INR 1.1 (0.8-1.2) 07/12/20 15:38 VBG pH 7.391 (7.31-7.41) 07/15/20 04:08 Ionized Calcium 1.14 mmol/L (1.15-1.33) L 07/15/20 04:08 Sodium 141 mmol/L (135-145) 07/15/20 04:08 Potassium 3.5 mmol/L (3.5-5.0) 07/15/20 04:08 Chloride 109 mmol/L (101-111) 07/15/20 04:08 Carbon Dioxide 21 mmol/L (21-32) 07/15/20 04:08 Anion Gap 11.0 (6-13) 07/15/20 04:08 BUN 20 mg/dL (6-20) 07/15/20 04:08 Creatinine 0.8 mg/dL (0.4-1.0) 07/15/20 04:08 Estimated GFR (MDRD) 69 (>89) L 07/15/20 04:08 Glucose 101 mg/dL (70-100) H 07/15/20 04:08 Calcium 8.5 mg/dL (8.5-10.3) 07/15/20 04:08 Phosphorus 2.7 mg/dL (2.5-4.6) 07/15/20 04:08 Magnesium 1.8 mg/dL (1.7-2.8) 07/15/20 04:08 Total Bilirubin 1.1 mg/dL (0.2-1.0) H 07/12/20 15:38 AST 19 IU/L (10-42) 07/12/20 15:38 ALT 17 IU/L (10-60) 07/12/20 15:38 Alkaline Phosphatase 97 IU/L (42-121) 07/12/20 15:38 Total Protein 6.8 g/dL (6.7-8.2) 07/12/20 15:38 Albumin 4.1 g/dL (3.2-5.5) 07/12/20 15:38 Globulin 2.7 g/dL (2.1-4.2) 07/12/20 15:38 Albumin/Globulin Ratio 1.5 (1.0-2.2) 07/12/20 15:38 Nasal Adenovirus (PCR) NOT DETECTED 07/12/20 18:12 Nasal B. parapertussis DNA (PCR) NOT DETECTED 07/12/20 18:12 Nasal Coronavir 229E PCR NOT DETECTED 07/12/20 18:12 Nasal Coronavir HKU1 PCR NOT DETECTED 07/12/20 18:12 Nasal Coronavir NL63 PCR NOT DETECTED 07/12/20 18:12 Nasal Coronavir OC43 PCR NOT DETECTED 07/12/20 18:12 Nasal Enterovir/Rhinovir PCR NOT DETECTED 07/12/20 18:12 Nasal Influenza B PCR NOT DETECTED 07/12/20 18:12 Nasal Influenza A PCR NOT DETECTED 07/12/20 18:12 Nasal Parainfluen 1 PCR NOT DETECTED 07/12/20 18:12 Nasal Parainfluen 2 PCR NOT DETECTED 07/12/20 18:12 Nasal Parainfluen 3 PCR NOT DETECTED 07/12/20 18:12 Nasal Parainfluen 4 PCR NOT DETECTED 07/12/20 18:12 Nasal RSV (PCR) NOT DETECTED 07/12/20 18:12 Nasal Screen MRSA (PCR) NEGATIVE (NEGATIVE) 07/12/20 21:10 Nasal B.pertussis DNA PCR NOT DETECTED 07/12/20 18:12 Nasal C.pneumoniae (PCR) NOT DETECTED 07/12/20 18:12 Heath Human Metapneumo PCR NOT DETECTED 07/12/20 18:12 Nasal M.pneumoniae (PCR) NOT DETECTED 07/12/20 18:12 Nasal SARS-CoV-2 (PCR) NOT DETECTED 07/12/20 18:12
[2020-07-15] MEDS ORDERED: GADOBUTROL 7.5 MMOL/7.5 ML VIAL ONE (18:53)
[2020-07-15] MEDS ORDERED: GADOBUTROL 7.5 MMOL/7.5 ML VIAL IVP ONE (19:19)
--- NOTE | 2020-07-15 20:13 | MRI Report ---
PROCEDURE: Brain W/WO INDICATIONS: F/U CT CONTRAST: IV CONTRAST: Gadavist ml: 6 TECHNIQUE: Noncontrast axial T1 spin echo, axial T2 fast spin echo, sagittal and axial FLAIR, coronal T2 fast sp in echo, axial gradient echo, axial diffusion and ADC through the brain. After the administration of contrast, axial and coronal T1 spin echo with fat saturation through the brain. COMPARISON: Head CT dated 07/13/2020 FINDINGS: Image quality: Degraded by motion artifact. CSF spaces: Basal cisterns are patent. No extra-axial fluid collections. Ventricles are normal in size and shape. Brain: There is a predominantly cystic and partially solid mass within the left anterior frontal lobe , as before, measuring roughly 72 mm anteroposterior by 47 mm transverse by 65 mm craniocaudal, as be fore. There is layering high T1/low T2 signal intensity material within it, corresponding to a small amount of hemorrhage, as seen by CT. No definite mural enhancement is seen within this lesion. Left frontal sulcal effacement is present. Roughly 10 mm of rightward midline shift is present, as before. There is cerebral volume loss for age. There is periventricular white matter chronic small vessel i schemic change. The brainstem appears normal. Diffusion-weighted images demonstrate no acute ischem ic insults. No chronic ischemic insults. Normal intravascular flow voids are present. Skull and face: Calvarial marrow is normal in signal. Orbits appear normal. Sinuses: Sinuses and mastoids appear clear. IMPRESSION: 1. No significant change in left frontal cystic mass with layering internal hemorrhagic products. No evidence of surrounding inflammation, nor venous echogenic edema. Neurosurgical consultation recommen ded. 2. No significant change in rightward midline shift. 3. No recent infarct. Reviewed by: Damon Wheeler MD on 07/15/2020 8:12 PM PST Approved by: Damon Wheeler MD on 07/15/2020 8:12 PM PST Station ID: [id number]
[2020-07-15] MEDS: ATORVASTATIN 10 MG TABLET PO SCH (20:15)
[2020-07-16] MEDS: ACETAMINOPHEN 325 MG TABLET PO PRN (04:59)
[2020-07-16] MEDS: SODIUM CHLORIDE 0.9% 1,000 ML IV SCH (05:14)
[2020-07-16 05:25] LABS: BASOPHILS % (AUTO) 0.2 %; EOSINOPHILS # (AUTO) 0.1 10^3/uL (0.0-0.7); EOSINOPHILS % (AUTO) 2.2 %; HGB - HEMOGLOBIN 12.7 g/dL (12.0-16.0); LYMPHOCYTES # (AUTO) 1.3 10^3/uL (1.5-3.5); LYMPHOCYTES % (AUTO) 19.7 %; MEAN CORPUSCULAR HEMOGLOBIN 29.5 pg (27.0-31.0); MEAN CORPUSCULAR HGB CONC 33.3 g/dL (32.0-36.0); MEAN CORPUSCULAR VOLUME 88.4 fL (81.0-99.0); MEAN PLATELET VOLUME 10.7 fL (7.9-10.8); MONOCYTES # (AUTO) 0.7 10^3/uL (0.0-1.0); MONOCYTES % (AUTO) 10.4 %; NEUTROPHILS # (AUTO) 4.3 10^3/uL (1.5-6.6); NEUTROPHILS % (AUTO) 67.2 %; PLT - PLATELET COUNT 136 10^3/uL (130-450); RED BLOOD COUNT 4.31 10^6/uL (4.20-5.40); RED CELL DISTRIBUTION WIDTH 12.4 % (12.0-15.0); WHITE BLOOD COUNT 6.3 x10^3/uL (4.8-10.8)
[2020-07-16 05:41] LABS: CALCIUM 8.8 mg/dL (8.5-10.3); CREATININE 0.6 mg/dL (0.4-1.0); MAGNESIUM 1.7 mg/dL (1.7-2.8); PHOSPHORUS 2.1 mg/dL (2.5-4.6)
[2020-07-16 05:55] LABS: VBG PH 7.42 (7.31-7.41)
[2020-07-16] MEDS: CARBIDOPA/LEVODOPA 25 MG/100 MG TABLET PO SCH ×3 (06:16→21:22)
--- NOTE | 2020-07-16 06:38 | PROVIDER PROGRESS NOTE ---
Assessment/Plan - Problem List (1) Intracranial hemorrhage Assessment/Plan: Patient appears stable/improving She was seated in bedside chair at time of exam. Her speech is intelligible.Her thought processing is intact. However she Has some word finding difficulties. MRI done yesterday showed no significant change in the left frontal cystic mass. Layering internal hemorrhagic products were noted. There was no evidence of surrounding inflammation or venous echogenic edema. No significant change in ri ghtward midline shift. No recent infarct noted. We will continue medical management and monitoring the patient closely with neurochecks as indicated. (2) Stroke Assessment/Plan: Overall patient has clinically improved. She is able to carry on an intelligible conversation with minimal difficulty. She has residual right upper extremity weakness. Her lower extremity weakness is more prominent than in the upper extremities She is currently in MedSurg status. He has been cleared for a pured diet with nectar thick liquids. PT and OT to continue working with the patient today. If patient continues to improve and all remained stable, will discuss with case management regarding disposition to possibly SNF on 07/18/2020 (3) Brain cyst Assessment/Plan: As mentioned in the MRI findings above there is no change in the brain cyst (4) Dementia Assessment/Plan: As per Hx (5) Parkinsons disease Assessment/Plan: On carbidopa/levodopa. We will continue (6) Hypertension Assessment/Plan: Patient was weaned off Cardene drip. She is on Norvasc 2.5 mg p.o. daily. (7) Thrombocytopenia Assessment/Plan: Stable. Patient's platelet count today was 136. We will continue to monitor (8) History of breast cancer Assessment/Plan: as per Hx (9) Aphagia Assessment/Plan: Improved. Per speech recommendation the patient is on a pured diet with nectar thick liquids. - Current Meds Current Meds: Current Medications Generic Name Dose Route Start Last Admin Trade Name Freq PRN Reason Stop Dose Admin Acetaminophen 650 mg 07/12/20 19:55 07/16/20 04:59 Acetaminophen 325 Mg Tablet PO 650 mg Q4HR PRN Administration Pain 1 to 4 Amlodipine Besylate 2.5 mg 07/15/20 12:00 07/15/20 14:22 Amlodipine 5 Mg Tablet PO 2.5 mg DAILY YOANA Administration Atorvastatin Calcium 5 mg 07/15/20 21:00 07/15/20 20:15 Atorvastatin 10 Mg Tablet PO 5 mg QPM YOANA Administration Carbidopa/Levodopa 1 tab 07/15/20 14:00 07/16/20 06:16 Carbidopa/Levodopa 25 Mg/100 Mg Tablet PO 1 tab TID YOANA Administration Famotidine 20 mg 07/13/20 10:58 07/15/20 20:15 Famotidine 20 Mg/2 Ml Vial IVP 20 mg BID YOANA Administration Sodium Chloride 1,000 mls @ 75 mls/hr 07/13/20 22:18 07/16/20 05:14 Normal Saline 0.9% IV Not Given .[id number] YOANA Oxybutynin Chloride 5 mg 07/15/20 09:00 07/15/20 20:15 Oxybutynin 5mg Tablet PO 5 mg BID YOANA Administration Sodium Chloride 10 ml 07/13/20 01:00 07/15/20 20:18 Sodium Chloride Flush 0.9% 10 Ml Syringe IVP 10 ml 0100,0900,1700 YOANA Administration Sodium Chloride 10 ml 07/12/20 19:55 07/15/20 09:37 Sodium Chloride Flush 0.9% 10 Ml Syringe IVP 10 ml PRN PRN Administration NEEDED PER PROVIDER ORDERS - Lab Result Fish Bone Diagrams: 07/16/20 04:42 07/16/20 04:42 Subjective - Subjective Patient Reports: Other (Keyes was seated in bedside chair at the time of my exam. She had been transferred using stop left. Her main concern this morning is regarding urinary incontinence. Her right upper extremity is weaker when compared to the left. She has significant lower extremity weakness. [id number] test is) Objective Vital Signs: Vital Signs - 24 hr 07/15/20 07/15/20 07/15/20 07:00 08:00 09:00 Temperature 37.2 C Heart Rate [ Activity] Heart Rate [ 70 72 77 Monitoring electrodes] Heart Rate [ Supine] Respiratory 17 17 19 Rate Blood Pressure [Activity] Blood Pressure 129/49 L 137/56 H 125/48 L [Right Brachial artery] Blood Pressure [Supine] O2 Saturation 94 92 97 07/15/20 07/15/20 07/15/20 10:00 11:00 12:00 Temperature 36.8 C Heart Rate [ Activity] Heart Rate [ 72 70 71 Monitoring electrodes] Heart Rate [ Supine] Respiratory 19 19 18 Rate Blood Pressure [Activity] Blood Pressure 133/51 H 126/52 L 138/56 H [Right Brachial artery] Blood Pressure [Supine] O2 Saturation 94 95 94 07/15/20 07/15/20 07/15/20 12:20 13:00 14:00 Temperature Heart Rate [ 73 Activity] Heart Rate [ 67 72 Monitoring electrodes] Heart Rate [ 65 Supine] Respiratory 18 18 Rate Blood Pressure 128/52 L [Activity] Blood Pressure 138/56 H 149/74 H [Right Brachial artery] Blood Pressure 114/45 L [Supine] O2 Saturation 95 07/15/20 07/15/20 07/15/20 15:00 15:49 18:00 Temperature 36.7 C Heart Rate [ Activity] Heart Rate [ 75 74 75 Monitoring electrodes] Heart Rate [ Supine] Respiratory 22 95 H 18 Rate Blood Pressure [Activity] Blood Pressure 126/56 L 147/62 H 145/59 H [Right Brachial artery] Blood Pressure [Supine] O2 Saturation 23 L 07/15/20 07/15/20 07/16/20 20:07 23:26 03:20 Temperature 37.5 C 36.4 C L 36.9 C Heart Rate [ Activity] Heart Rate [ 73 67 68 Monitoring electrodes] Heart Rate [ Supine] Respiratory 20 17 20 Rate Blood Pressure [Activity] Blood Pressure 149/61 H 146/56 H 154/60 H [Right Brachial artery] Blood Pressure [Supine] O2 Saturation 94 93 94 Oxygen O2 Source Room air I&O (Last 24 Hrs): Intake and Output Totals x24h 07/14/20 07/15/20 07/16/20 23:59 23:59 23:59 Intake Total 3072.500 2266.250 450 Output Total 1080 1075 1200 Balance 6554.987 1083.250 -750 General: Alert, Oriented x3, Cooperative, No acute distress HEENT: PERRLA, EOMI Neck: Supple, No JVD Neuro: Focal Deficits, Other (Speech is intelligible, however she has some word- finding difficulties.) Cardiovascular: Regular rate, No murmurs Respiratory: Chest non-tender, No respiratory distress, Breath sounds nml Abdomen: Soft Extremities: Other (Patient has some nonpitting edema in her upper extremities.) Skin: No rashes - Results Results: Laboratory Results WBC 6.3 x10^3/uL (4.8-10.8) 07/16/20 04:42 RBC 4.31 10^6/uL (4.20-5.40) 07/16/20 04:42 Hgb 12.7 g/dL (12.0-16.0) 07/16/20 04:42 Hct 38.1 % (37.0-47.0) 07/16/20 04:42 MCV 88.4 fL (81.0-99.0) 07/16/20 04:42 MCH 29.5 pg (27.0-31.0) 07/16/20 04:42 MCHC 33.3 g/dL (32.0-36.0) 07/16/20 04:42 RDW 12.4 % (12.0-15.0) 07/16/20 04:42 Plt Count 136 10^3/uL (130-450) 07/16/20 04:42 MPV 10.7 fL (7.9-10.8) 07/16/20 04:42 Neut # (Auto) 4.3 10^3/uL (1.5-6.6) 07/16/20 04:42 Lymph # (Auto) 1.3 10^3/uL (1.5-3.5) L 07/16/20 04:42 Anderson # (Auto) 0.7 10^3/uL (0.0-1.0) 07/16/20 04:42 Eos # (Auto) 0.1 10^3/uL (0.0-0.7) 07/16/20 04:42 Baso # (Auto) 0.0 10^3/uL (0.0-0.1) 07/16/20 04:42 Absolute Nucleated RBC 0.00 x10^3/uL 07/16/20 04:42 Nucleated RBC % 0.0 /100WBC 07/16/20 04:42 PT 12.2 secs (9.9-12.6) 07/12/20 15:38 INR 1.1 (0.8-1.2) 07/12/20 15:38 VBG pH 7.420 (7.31-7.41) H 07/16/20 04:42 Ionized Calcium 1.12 mmol/L (1.15-1.33) L 07/16/20 04:42 Sodium 139 mmol/L (135-145) 07/16/20 04:42 Potassium 3.7 mmol/L (3.5-5.0) 07/16/20 04:42 Chloride 104 mmol/L (101-111) 07/16/20 04:42 Carbon Dioxide 25 mmol/L (21-32) 07/16/20 04:42 Anion Gap 10.0 (6-13) 07/16/20 04:42 BUN 12 mg/dL (6-20) 07/16/20 04:42 Creatinine 0.6 mg/dL (0.4-1.0) 07/16/20 04:42 Estimated GFR (MDRD) 95 (>89) 07/16/20 04:42 Glucose 125 mg/dL (70-100) H 07/16/20 04:42 Calcium 8.8 mg/dL (8.5-10.3) 07/16/20 04:42 Phosphorus 2.1 mg/dL (2.5-4.6) L 07/16/20 04:42 Magnesium 1.7 mg/dL (1.7-2.8) 07/16/20 04:42 Total Bilirubin 1.1 mg/dL (0.2-1.0) H 07/12/20 15:38 AST 19 IU/L (10-42) 07/12/20 15:38 ALT 17 IU/L (10-60) 07/12/20 15:38 Alkaline Phosphatase 97 IU/L (42-121) 07/12/20 15:38 Total Protein 6.8 g/dL (6.7-8.2) 07/12/20 15:38 Albumin 4.1 g/dL (3.2-5.5) 07/12/20 15:38 Globulin 2.7 g/dL (2.1-4.2) 07/12/20 15:38 Albumin/Globulin Ratio 1.5 (1.0-2.2) 07/12/20 15:38 Nasal Adenovirus (PCR) NOT DETECTED 07/12/20 18:12 Nasal B. parapertussis DNA (PCR) NOT DETECTED 07/12/20 18:12 Nasal Coronavir 229E PCR NOT DETECTED 07/12/20 18:12 Nasal Coronavir HKU1 PCR NOT DETECTED 07/12/20 18:12 Nasal Coronavir NL63 PCR NOT DETECTED 07/12/20 18:12 Nasal Coronavir OC43 PCR NOT DETECTED 07/12/20 18:12 Nasal Enterovir/Rhinovir PCR NOT DETECTED 07/12/20 18:12 Nasal Influenza B PCR NOT DETECTED 07/12/20 18:12 Nasal Influenza A PCR NOT DETECTED 07/12/20 18:12 Nasal Parainfluen 1 PCR NOT DETECTED 07/12/20 18:12 Nasal Parainfluen 2 PCR NOT DETECTED 07/12/20 18:12 Nasal Parainfluen 3 PCR NOT DETECTED 07/12/20 18:12 Nasal Parainfluen 4 PCR NOT DETECTED 07/12/20 18:12 Nasal RSV (PCR) NOT DETECTED 07/12/20 18:12 Nasal Screen MRSA (PCR) NEGATIVE (NEGATIVE) 07/12/20 21:10 Nasal B.pertussis DNA PCR NOT DETECTED 07/12/20 18:12 Nasal C.pneumoniae (PCR) NOT DETECTED 07/12/20 18:12 Heath Human Metapneumo PCR NOT DETECTED 07/12/20 18:12 Nasal M.pneumoniae (PCR) NOT DETECTED 07/12/20 18:12 Nasal SARS-CoV-2 (PCR) NOT DETECTED 07/12/20 18:12 ABX Reporting Has patient been on IV antibiotics over the past 48 hours?: No
[2020-07-16] MEDS ORDERED: NEUTRA-PHOS 250 MG TABLET PO SCH (08:00)
[2020-07-16] MEDS: OXYBUTYNIN 5MG TABLET PO SCH ×2 (08:44→21:23)
[2020-07-16] MEDS: amLODIPine 5 MG TABLET PO SCH (08:44)
[2020-07-16] MEDS: FAMOTIDINE 20 MG/2 ML VIAL IVP SCH ×2 (08:45→21:23)
[2020-07-16] MEDS: SODIUM CHLORIDE FLUSH 0.9% 10 ML SYRINGE IVP SCH ×3 (08:46→21:24)
[2020-07-16] MEDS: ATORVASTATIN 10 MG TABLET PO SCH (21:23)
[2020-07-17 05:05] LABS: BASOPHILS % (AUTO) 0.3 %; EOSINOPHILS # (AUTO) 0.2 10^3/uL (0.0-0.7); EOSINOPHILS % (AUTO) 2.3 %; HGB - HEMOGLOBIN 12.6 g/dL (12.0-16.0); LYMPHOCYTES # (AUTO) 1.1 10^3/uL (1.5-3.5); LYMPHOCYTES % (AUTO) 15.6 %; MEAN CORPUSCULAR HEMOGLOBIN 28.9 pg (27.0-31.0); MEAN CORPUSCULAR HGB CONC 33.1 g/dL (32.0-36.0); MEAN CORPUSCULAR VOLUME 87.4 fL (81.0-99.0); MEAN PLATELET VOLUME 10.3 fL (7.9-10.8); MONOCYTES # (AUTO) 0.7 10^3/uL (0.0-1.0); MONOCYTES % (AUTO) 10.7 %; NEUTROPHILS # (AUTO) 4.9 10^3/uL (1.5-6.6); NEUTROPHILS % (AUTO) 70.8 %; PLT - PLATELET COUNT 152 10^3/uL (130-450); RED BLOOD COUNT 4.36 10^6/uL (4.20-5.40); RED CELL DISTRIBUTION WIDTH 12.4 % (12.0-15.0); WHITE BLOOD COUNT 6.9 x10^3/uL (4.8-10.8)
[2020-07-17 05:09] LABS: VBG PH 7.461 (7.31-7.41)
[2020-07-17 05:21] LABS: CALCIUM 8.9 mg/dL (8.5-10.3); CREATININE 0.7 mg/dL (0.4-1.0); MAGNESIUM 1.8 mg/dL (1.7-2.8); PHOSPHORUS 3.4 mg/dL (2.5-4.6)
[2020-07-17] MEDS: CARBIDOPA/LEVODOPA 25 MG/100 MG TABLET PO SCH ×2 (06:14→15:02)
[2020-07-17] MEDS ORDERED: POTASSIUM CHLORIDE 20 MEQ TABLET PO ONE (06:20)
--- NOTE | 2020-07-17 06:46 | Discharge Plan ---
Discharge Plan Condition: Critical No Smoking: If you smoke, Please STOP! Call for help.
--- NOTE | 2020-07-17 06:46 | DISCHARGE SUMMARY ---
Discharge Summary Admit Date: 07/12/20 Discharge Date: 07/17/20 Discharging Provider: Irina Alves Primary Care Provider: Ash Albrecht Code Status: Do Not Attempt Resuscitation Condition at Discharge: Fair Discharge Disposition: 03 SNF DC/Xfer Discharge Facility Name: [facility] - DIAGNOSES Admission Diagnoses: Intracranial hemorrhage Hypertension Parkinson's disease History of breast cancer Discharge Diagnoses with Status of Each Condition: Intracranial hemorrhage: Acute.Stable Stroke: Stable/improved with residual left-sided weakness Brain cyst: Stable Dementia: Chronic Parkinson's disease: Chronic Hypertension: Chronic Thrombocytopenia: Acute. Improved/resolved History of breast cancer - HPI History of Present Illness: This is a 84-year-old female with a past medical history significant for hypertension, Parkinson's disease, history of breast cancer who presents today after having a fall at her correction. She states that she fell yesterday and hit the right side of her head. She fell again today and it was noted that her speech was slurred/dysarthric. The patient denies any headache or change in vision. She denies any focal motor deficits. She reports no chest pain or dyspnea. She states she is not on aspirin or any anticoagulation. She normally ambulates with a cane. She did not have any loss of consciousness. In the emergency department, she was found to be afebrile with a temperature of 37.1 C. Her heart rate was in the 70s. Blood pressure is 160/72. She was not tachypneic and saturating well on room air. She underwent a CT of the head which showed an acute intracranial hemorrhage which exerts significant overall moderate mass-effect. 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 These findings were discussed with neurosurgery at [place] who felt that transfer was not warranted as there would be no surgical intervention due to her age and comorbidities. Medicine was then consulted for admission. I did discuss goals of care with the patient and she states that she is a DNR. - HOSPITAL COURSE Hospital Course: Patient was admitted to the ICU for neurochecks every hour. The goal for her blood pressure was to keep the systolic less than 140 mmHg. As a result she was started on a Cardene infusion. She had worsening status of confusion and language ability and orientation the following day. This warranted a stat head CT scan. The head CT showed unchanged findings from the previous day. This included a significant size hemorrhage and midline shift and some herniation. Patient had significant improvement by day 3 of her hospital stay. She was seen by speech therapist who recommended a pured diet with nectar thick liquids. She required prompting to keep her chin down during swallow. She was also seen by PT OT who recommended SNF for rehab post stroke. The patient had residual right-sided weakness. Her speech was also still slurred. As a result of her improved status she was downgraded from ICU status to MedSurg status on 07/15/2020 if in the which she was still kept in the ICU. MRI done 07/15/2020 showed no significant change in the left frontal cystic mass. Layering internal hemorrhagic products were noted. There was no evidence of surrounding inflammation or venous echogenic edema. No significant change in rightward midline shift. No recent infarct noted. 2D echo done 07/15/2020 showed left ventricular size normal. Overall left ventricular systolic function was normal with an ejection fraction of 66-65%. Impaired laxation consistent with grade 1 diastolic dysfunction. No regional wall motion abnormality was seen. RVSP was 54 mmHg. There was no pericardial effusion. Patient was discharged to [facility] on 07/17/2020 for Rehab. - ALLERGIES Allergies/Adverse Reactions: Allergies Allergy/AdvReac Type Severity Reaction Status Date / Time No Known Drug Allergies Allergy Verified 07/12/20 15:30 - MEDICATIONS Home Medications: Ambulatory Orders Medication Instructions Recorded Confirmed Anastrozole 1 mg PO DAILY 11/11/19 07/13/20 Carbidopa/Levodopa 1 tab PO TID 11/11/19 07/13/20 [Carbidopa-Levodopa 25-100 Tab] Mirtazapine 22.5 mg PO QPM 11/11/19 07/13/20 Omeprazole 20 mg PO QPM 11/11/19 07/13/20 Oxybutynin [Ditropan] 5 mg PO BID 11/11/19 07/13/20 Simvastatin 10 mg PO QPM 11/11/19 07/13/20 amLODIPine [Norvasc] 5 mg PO DAILY 11/11/19 07/13/20 Acetaminophen [Acetaminophen Extra 500 mg PO Q4H PRN 07/13/20 07/13/20 Strength] Calcium Carbonate/Vitamin D3 1 tab PO BID 07/13/20 07/13/20 [Calcium 600-Vit D3 200 Tablet] Duloxetine HCl [Cymbalta] 40 mg PO DAILY 07/13/20 07/13/20 estradioL vaginal [Estrace vaginal] 1 gm VG .MON&FRIPM 07/13/20 07/13/20 polyethylene glycoL 3350 [Miralax] 17 gm PO DAILY 07/13/20 07/13/20 - PHYSICAL EXAM AT DISCHARGE General Appearance: positive: No acute distress, Alert Eyes Bilateral: positive: PERRL, EOMI ENT: positive: No signs of dehydration Neck: positive: No JVD, Trachea midline Respiratory: positive: Chest non-tender, No respiratory distress, Breath sounds nml. negative: Wheezes, Rales, Rhonchi Cardiovascular: positive: Regular rate & rhythm Abdomen: positive: Non-tender, No organomegaly, Nml bowel sounds, No distention. negative: Guarding, Rebound Back: positive: Nml inspection Skin: positive: Color nml, No rash, Warm, Dry. negative: Diaphoresis, Pallor, Skin rash Neurologic/Psychiatric: positive: Oriented x3, Mood/affect nml, Weakness (Residual right-sided weakness.[id number]-[id number] status still positive but much improved.), Slurred/abnml speech - LABS Result Diagrams: 07/17/20 04:40 07/17/20 04:40 - QUALITY (Female Hip Fx Only) Was patient sent home on osteoporosis medication?: No - FOLLOW UP Follow Up: Primary care physician Dr. Kenneth Albrecht within 7 to 10 days. - TIME SPENT Time Spent in Discharge (Minutes): 35
--- NOTE | 2020-07-17 07:33 | Discharge Plan ---
"Discharge Plan for SNF / [facility] - Discharge Plan And Transition Orders Problem Reviewed?: Yes Disposition: 03 SNF DC/Xfer Condition: Fair Allergies and Adverse Reactions: Allergies Allergy/AdvReac Type Severity Reaction Status Date / Time No Known Drug Allergies Allergy Verified 07/12/20 15:30 Health Concerns: You [facility] a [facility] and hit the right side of your head. You were noted to have difficulties speaking. You had slurred speech. You are brought to the emergency department and had a work-up which showed that you had a brain bleed. The study also showed that you had experienced a previous stroke. The case was discharged with neurosurgery at [place] who felt that no surgical intervention will be done and advised medical management. Your blood pressure was elevated at time of admission but this was controlled on initially a Cardene drip and then subsequently Amlodipine p.o. You have improved significantly over your stay in the hospital here. Your speech is improved even though still slurred. You still have some right-sided weakness which is more prominent in the lower extremity You are being discharged to [facility] for further rehab. Plan of Treatment: You had a fall at your [facility]it[facility] facility and hit the right side of your head. You were noted to have difficulties speaking. You had slurred speech. You are brought to the emergency department and had a work-up which showed that you had a brain bleed. The study also showed that you had experienced a previous stroke. The case was discharged with neurosurgery at [place] who felt that no surgical intervention will be done and advised medical management. Your blood pressure was elevated at time of admission but this was controlled on initially a Cardene drip and then subsequently Amlodipine p.o. You have improved significantly over your stay in the hospital here. Your speech is improved even though still slurred. You still have some right-sided weakness which is more prominent in the lower extremity You are being discharged to [facility] for further rehab. Care Goals: You had a fall at your penitent[facility] facility and hit the right side of your head. You were noted to have difficulties speaking. You had slurred speech. You are brought to the emergency department and had a work-up which showed that you had a brain bleed. The study also showed that you had experienced a previous stroke. The case was discharged with neurosurgery at [place] who felt that no surgical intervention will be done and advised medical management. Your blood pressure was elevated at time of admission but this was controlled on initially a Cardene drip and then subsequently Amlodipine p.o. You have improved significantly over your stay in the hospital here. Your speech is improved even though still slurred. You still have some right-sided weakness which is more prominent in the lower extremity You are being discharged to [facility] for further rehab. Assessment: The above was discussed with the patient who expressed understanding. - SNF / [facility] Transition Orders Admit to (Facility): [facility] Discharge Diagnosis: Intracranial hemorrhage Stroke Brain cyst Dementia Parkinson's disease Hypertension Medicare Certification Statement: I certify that Post Hospital long term care is medically necessary on a continuing basis for any of the conditions for which she/he is receiving care during hospitalization. Notify PCP of admission and forward orders to primary provider for signature. Weight on admission and: Daily Other Notification Orders: Call PCP immediately if patient develops dyspnea, chest pain/tightness or edema. House Bowel Program: Yes Additional Bowel Program Orders: If no BM after 2 days, nurse may give M.O.M. 30ml PO PRN and/or ducolax Supp 1 [place] and/or SAMARIA 250mg P.O., and/or senna 1-2 tabs PO. On day 3 nurse may give repeat above order until residents constipation is resolved. Medication Orders: PLEASE REFER TO THE DISCHARGE MEDICATION LIST. Insulin Orders?: No - Diet Texture: Puree Liquids: [place] thick May have monthly special meal: Yes - Therapies | Activity Therapy: Evaluation | Treat if indicated: Speech, PT, OT Rehabilitation Potential: Maximize functional status Activity: Per physical therapy fredy Weight Bearing: Per physical therapy fredy Assistance Devices: Wheelchair, Walker Follow Up: Follow-up with your primary care physician within 7 to 10 days."
[2020-07-17] MEDS: amLODIPine 5 MG TABLET PO SCH (08:26)
[2020-07-17] MEDS: OXYBUTYNIN 5MG TABLET PO SCH (08:26)
[2020-07-17] MEDS: FAMOTIDINE 20 MG/2 ML VIAL IVP SCH (08:31)
[2020-07-17] MEDS: SODIUM CHLORIDE FLUSH 0.9% 10 ML SYRINGE IVP SCH (08:32)
[2020-07-17 11:19] VITALS: BP 144/70
[2020-07-17 12:05] LABS: C. PNEUMONIAE- RESP PCR PANEL NOT DETECTED
== END 2020-07-17 15:00 | DRG 64 ==
LOC: EDUNIT# → ED 15:21 → ICU 18:38
PROVIDERS: ADMIT Internal Medicine; ATTEND Internal Medicine
DX: I62.9 Nontraumatic intracranial hemorrhage, unspecified (principal); I61.9 Nontraumatic intracerebral hemorrhage, unspecified; G93.5 Compression of brain; R47.01 Aphasia; G81.91 Hemiplegia, unspecified affecting right dominant side; R47.1 Dysarthria and anarthria; I10 Essential (primary) hypertension; R41.82 Altered mental status, unspecified; Z86.73 Personal history of transient ischemic attack (TIA), and cerebral infarction without residual deficits; G20 Parkinson's disease; F02.80 Dementia in other diseases classified elsewhere, unspecified severity, without behavioral disturbance, psychotic disturbance, mood disturbance, and anxiety; G93.0 Cerebral cysts; D69.6 Thrombocytopenia, unspecified; S09.90XA Unspecified injury of head, initial encounter; W18.30XA Fall on same level, unspecified, initial encounter; Z91.81 History of falling; Y92.129 Unspecified place in nursing home as the place of occurrence of the external cause; G93.89 Other specified disorders of brain; Z66 Do not resuscitate; R13.10 Dysphagia, unspecified; R29.810 Facial weakness; R53.1 Weakness; Z20.822 Contact with and (suspected) exposure to COVID-19; R32 Unspecified urinary incontinence; R60.0 Localized edema; R47.81 Slurred speech; Z85.3 Personal history of malignant neoplasm of breast
CPT/HCPCS: 36415; 70450; 70553; 72125; 80048; 80053; 82330; 83735; 84100; 85025; 85610; 87150; 87631; 92526; 92610; 93306; 97116; 97161; 97166; 97530; 99285; A9270; A9585; 0202U; 90686

== ENCOUNTER 2020-07-17 15:00 | Outpatient (CLI) | payer MEDICARE | END 2020-07-17 23:59 | disposition home or self-care (01) | LOC: EMS 15:00 | PROVIDERS: ATTEND Surgery | DX: I63.9 Cerebral infarction, unspecified (principal); G20 Parkinson's disease | CPT/HCPCS: A0425; A0428 ==

== ENCOUNTER 2020-07-27 08:00 | Outpatient (CLI) | payer MEDICARE ==
[2020-07-27 13:16] LABS: CALCIUM 9.4 mg/dL (8.5-10.3); CREATININE 0.9 mg/dL (0.4-1.0)
== END 2020-07-27 23:59 | disposition home or self-care (01) ==
LOC: LAB.R 08:00
DX: I63.9 Cerebral infarction, unspecified (principal)
CPT/HCPCS: 36415; 80048

== ENCOUNTER 2020-07-31 04:55 | Outpatient (CLI) | payer MEDICARE ==
[2020-07-31 06:36] LABS: BILIRUBIN,URINE NEGATIVE (NEGATIVE); GLUCOSE, URINE (UA) NEGATIVE (NEGATIVE); KETONES,URINE (UA) NEGATIVE (NEGATIVE); LEUKOCYTE ESTERASE, URINE LARGE (NEGATIVE); NITRITE,URINE NEGATIVE (NEGATIVE); OCCULT BLOOD,URINE NEGATIVE (NEGATIVE); PH,URINE 8.5 PH (5.0-7.5); PROTEIN,URINE TRACE mg/dL (NEGATIVE); UROBILINOGEN,URINE 1 (NORMAL) E.U./dL (NORMAL)
[2020-07-31 06:39] LABS: CLARITY,URINE TURBID (CLEAR)
[2020-07-31 06:54] LABS: RBC,URINE 0-5 /HPF (0-5); SQUAMOUS EPITHELIAL CELL,UR NONE SEEN (<= Few); WBC CLUMPS,URINE PRESENT
[2020-07-31 06:55] LABS: AMORPHOUS SEDIMENT,UR Marked /LPF; BACTERIA,URINE Many /HPF (None Seen)
== END 2020-07-31 23:59 | disposition home or self-care (01) ==
LOC: LAB.R 04:55
DX: N39.0 Urinary tract infection, site not specified (principal)
CPT/HCPCS: 81001; 87086

== ENCOUNTER 2020-08-07 13:49 | Outpatient (CLI) | payer MEDICARE | END 2020-08-07 13:50 | disposition critical access hospital (66) | LOC: EMS 13:49 | PROVIDERS: ATTEND Emergency Medicine | DX: R29.898 Other symptoms and signs involving the musculoskeletal system (principal); R47.01 Aphasia | CPT/HCPCS: A0425; A0429 ==

== ENCOUNTER 2020-08-07 13:53 | Emergency (ER) | payer MEDICARE ==
--- NOTE | 2020-08-07 14:06 | ED Physician Documentation ---
PD HPI FOCAL NEURO - Stated complaint Stated Complaint: CODE STROKE - History obtained from History obtained from: EMS - History of Present Illness Timing - onset: Today Timing - duration: Minutes Timing - details: Abrupt onset, Still present Severity of deficit: Severe Weakness: Face, Arm, Hand, Leg, Foot, Right Contributing factors: positive: Other (hx of hemorrhagic stroke) Similar symptoms before: Diagnosis (hemorrhagic stroke) Recently seen: Admitted - Additional information Additional information: 84-year-old female with a history of breast cancer and hypertension has had a recent CVA with hemorrhage into a cyst and this was treated conservatively here at the hospital and she left the hospital with a persistent right-sided deficit that was mild and she had recovered most of her ability to speak. She is now a resident at [facility] and today, witnessed, the patient was in her usual state when she suddenly became unable to use her right side. She has a right facial droop she is unable to speak. She has right arm weakness and she has bilateral lower extremity weakness as well. She is brought to the hospital by ambulance. Review of Systems Unable to obtain: AMS PD PAST MEDICAL HISTORY - Past Medical History Cardiovascular: Hypertension Respiratory: None Neuro: Parkinson's GI: None MEDIA SALES CONSULTANT: Breast cancer : Incontinence Psych: None Musculoskeletal: None Derm: None - Past Surgical History Ortho: Knee replacement, Rotator cuff repair, Spine surgery /MEDIA SALES CONSULTANT: Other - Present Medications Home Medications: Ambulatory Orders Medication Instructions Recorded Confirmed Anastrozole 1 mg PO DAILY 11/11/19 07/13/20 Carbidopa/Levodopa 1 tab PO TID 11/11/19 07/13/20 [Carbidopa-Levodopa 25-100 Tab] Mirtazapine 22.5 mg PO QPM 11/11/19 07/13/20 Omeprazole 20 mg PO QPM 11/11/19 07/13/20 Oxybutynin [Ditropan] 5 mg PO BID 11/11/19 07/13/20 Simvastatin 10 mg PO QPM 11/11/19 07/13/20 amLODIPine [Norvasc] 5 mg PO DAILY 11/11/19 07/13/20 Acetaminophen [Acetaminophen Extra 500 mg PO Q4H PRN 07/13/20 07/13/20 Strength] Calcium Carbonate/Vitamin D3 1 tab PO BID 07/13/20 07/13/20 [Calcium 600-Vit D3 200 Tablet] Duloxetine HCl [Cymbalta] 40 mg PO DAILY 07/13/20 07/13/20 estradioL vaginal [Estrace vaginal] 1 gm VG .MON&FRIPM 07/13/20 07/13/20 polyethylene glycoL 3350 [Miralax] 17 gm PO DAILY 07/13/20 07/13/20 - Allergies Allergies/Adverse Reactions: Allergies Allergy/AdvReac Type Severity Reaction Status Date / Time No Known Drug Allergies Allergy Verified 08/07/20 14:12 - Social History Does the pt smoke?: No Smoking Status: Never smoker PD ED PE NORMAL - Vitals Vital signs reviewed: Yes - General General: No acute distress, Well developed/nourished, Other (blank stare of Parkinsons obvious right facial droop) - HEENT HEENT: Atraumatic, PERRL, EOMI - Neck Neck: Supple, no meningeal sign, No bony TTP - Cardiac Cardiac: RRR, No murmur - Respiratory Respiratory: No respiratory distress, Clear bilaterally - Abdomen Abdomen: Normal bowel sounds, Soft, Non tender, Non distended, No organomegaly - Back Back: No CVA TTP, No spinal TTP - Derm Derm: Normal color, Warm and dry, No rash - Extremities Extremities: No deformity, No edema - Neuro Neuro: Other (neuro exam compatible with right sided deficit, facial droop, arm and leg weakness. ) Eye Opening: Spontaneous Motor: Obeys Commands Verbal: None GCS Score: 11 - Psych Psych: Normal mood, Normal affect NIHSS - Time Time: 14:02 - Level of Consciousness Level of consciousness: (1) Not alert, but arousable by minor stimulation to obey, or answer LOC Questions: (1) Answers one Q correctly LOC Commands: (0) Performs both correctly - Gaze Best Gaze: (0) Normal - Visual Visual: (0) No loss - Facial Palsy Facial Palsy: (3) Complete paralysis - Motor Arms (both separate) Motor Arm (right): (1) Drift Motor Arm (left): (0) No drift - Motor Legs (both separate) Motor Leg (right): (2) Some effort against gravity Motor Leg (left): (2) Some effort against gravity - Limb Ataxia Limb Ataxia: (1) Present in 1 limb - Sensory Sensory: (1) Rypd-rd-[id number] loss - Best Language Best Language: (3) Mute, global aphasia - Dysarthria Dysarthria: (2) Severe dysarthria - Extinction and Inattention (formally neg Extinction and inattention: (1) Visual,tactile,auditory,spatial, or personal inattention - Total Score/Results Total Score/Result: 18 Results - Vitals Vitals: Vital Signs - 24 hr 08/07/20 08/07/20 14:12 14:23 Temperature 36.5 C 36.5 C Heart Rate 98 100 Respiratory 24 24 Rate Blood Pressure 101/65 101/65 O2 Saturation 98 94 Oxygen O2 Source Nasal cannula Oxygen Flow Rate 2 - Rads (name of study) CT head Radiology: Prelim report reviewed (Impression: 1. No acute intracranial disease process. 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 1.1 cm of left to right midline shift caused by the large left extra-axial cystic is stable), EMP read indepedently, See rad report Procedures - IVC sono (time) 1345 Bedside IVC sono: IVC measures (cm) (1.44), Euvolemia PD MEDICAL DECISION MAKING - ED course Complexity details: reviewed old records, reviewed results, re-evaluated patient, considered differential, d/w family ED course: 84 y/o female with acute right sided deficit after recovering from a bleed into an arachnoid cyst arrives to the ED not speaking but able to follow some com mands. We were able to get the scan done and this demonstrated the cyst again but really looked unchanged in size and the internal bleeding was resolved. We turned our attention to possible causes of this patients acute presentation and orders were made to administer keppra and decadron for seizure and swelling and while we were trying to get her IV started she became apneic, brown liquid passed from her mouth and she . She peacefully with 3 ED nursed and 2 ED doctors present and her family was notified of her peaceful passing. Her PMD Dr. Watters called to give updates on what she has had happen in the past week. She saw the doctors at [facility] in [place] with a similar presentation and she returned to [facility] and was improved for about 2 days. Departure - Departure Disposition: 20
[2020-08-07] MEDS ORDERED: DEXAMETHASONE 10 MG/ML VIAL IVP STA (14:10)
[2020-08-07] MEDS ORDERED: levETIRAcetam INJ 1,000 MG in SODIUM CHLORIDE 0.9% 100ML 100 ML IV STA (14:10)
--- NOTE | 2020-08-07 14:19 | CT Report ---
PROCEDURE: HEAD WO INDICATIONS: Fall, acute neuro deficit TECHNIQUE: Noncontrast 4.5 mm thick angled axial sections acquired from the foramen magnum to the vertex. For r adiation dose reduction, the following was used: automated exposure control, adjustment of mA and/or kV according to patient size. COMPARISON: 07/13/2020 and 07/12/2020 FINDINGS: Image quality: Excellent. CSF spaces: Basal cisterns are patent. Large left frontal-parietal extra-axial cystic lesion with de pendently layering internal debris is stable in size and contour compared to prior exams. No acute in tracranial hemorrhage identified within the cystic lesion. The ventricles are symmetric in size and s hape. Brain: Large left temporal extra-axial cystic lesion with dependently layering internal debris is st able in size and contour compared to prior exams. No acute intracranial hemorrhage identified within the cystic lesion. Approximately 1.1 cm of [id number] midline shift is stable. There is cerebral v olume loss for age, with resultant ventricular and sulcal prominence. There are periventricular and deep white matter chronic small vessel ischemic changes. There is intracranial internal carotid che ry atherosclerosis. Skull and face: Left frontal lindsay hole is stable. And vertebral artery Visualized facial bones appear intact, without suspicious lesions. Sinuses: Visualized sinuses and mastoids are clear. IMPRESSION: 1. No acute intracranial disease process. 2. Large left frontal-temporal extra-axial cyst with chronic internal hemorrhage is not definitely ch anged compared to prior exams. 3. 1.1 cm of [id number]-[id number] midline shift caused by the large left extra-axial cyst is stable. 4. No acute intracranial hemorrhage. Reviewed by: Akanksha Pascal MD, PhD on 08/07/2020 2:18 PM PST Approved by: Akanksha Pascal MD, PhD on 08/07/2020 2:18 PM PST Station ID: [id number]
[2020-08-07 14:23] VITALS: BP 101/65
[2020-08-07] MEDS ORDERED: SODIUM CHLORIDE INHALATION 3 ML NEB ONE (14:56)
== END 2020-08-07 19:20 | disposition expired ==
LOC: EDUNIT# → ED 13:53
DX: I61.9 Nontraumatic intracerebral hemorrhage, unspecified (principal); G93.0 Cerebral cysts; R47.1 Dysarthria and anarthria; R29.810 Facial weakness; G81.91 Hemiplegia, unspecified affecting right dominant side; R29.718 NIHSS score 18; I10 Essential (primary) hypertension; G20 Parkinson's disease; Z85.3 Personal history of malignant neoplasm of breast; R06.81 Apnea, not elsewhere classified
CPT/HCPCS: 80053; 83690; 85025; 85610; 85730; 99281; 99285